=== PATIENT | female | born 1955 | race Caucasian/White ===

== ENCOUNTER 2023-02-17 08:33 | Outpatient (OUT) | payer MEDICARE, SELFPAY ==
--- NOTE | 2023-02-17 08:38 | MM_ITS ---
Patient: ALCIDES GOSS Exam Date: 02/17/2023 : 1955 Gender:F Ordering : DR. DOT WARREN D.O. Admission #: [id number] Family : CH[facility]STELLE [facility]OO [facility] Order #: [id number] CLICK HERE TO VIEW EXAM RADIOLOGY REPORT PROCEDURE: MM TOMOSYNTHESIS SCREENING BI COMPARISON: MG MAMM SCREEN 3D TERRENCE CAD, 02/02/2022. MG MAMM SCREEN 3D TERRENCE CAD, 01/31/2021. INDICATIONS: Screening for malignant neoplasm Calculator Name NCI Breast Cancer Risk Assessment Tool 5 Year Breast Cancer Risk 3.60% Lifetime Breast Cancer Risk 11.30% Personal Breast Cancer No Personal Ovarian Cancer No Treatments Excision Family Cancers Daughter with breast cancer at age 41. LOCATION: [facility] BREAST COMPOSITION: Heterogeneously dense,which may obscure small masses. FINDINGS: DIAGNOSTIC CATEGORY 1--NEGATIVE. NO CHANGE FROM COMPARISON ASSESSMENT. Scattered benign-appearing calcifications are present. Scattered benign-appearing lymph nodes are present. RIGHT BREAST: No significant suspicious finding. LEFT BREAST: No significant suspicious finding. RECOMMENDATIONS: ROUTINE MAMMOGRAM AND CLINICAL EVALUATION IN 12 MONTHS. PLEASE NOTE: A NORMAL MAMMOGRAM DOES NOT EXCLUDE THE POSSIBILITY OF BREAST CANCER. A CLINICALLY SUSPICIOUS PALPABLE LUMP SHOULD BE BIOPSIED. Dictated by: Андрей Kennedy MD on 02/19/2023 at 12:48 Approved by: Андрей Kennedy MD on 02/19/2023 at 12:49
== END 2023-02-17 08:34 | disposition home or self-care (01) ==
LOC: MAMMO 08:33
PROVIDERS: PCP Nurse Practitioner Family; Visit Provider Obstetrics & Gynecology
DX: Z12.31 Encounter for screening mammogram for malignant neoplasm of breast (principal); Z80.3 Family history of malignant neoplasm of breast
CPT/HCPCS: 77063; 77067

== ENCOUNTER 2023-09-13 07:15 | Outpatient (OUT) | payer MEDICARE, SELFPAY ==
[2023-09-13 07:50] LABS: Basophils Percent Auto 0.3 % (0.2-2.0); Eosinophils Absolute Auto 0.1 10^3/uL (0.0-0.7); Eosinophils Percent Auto 3.9 % (0.9-7.0); Hematocrit 37.4 % (36.0-48.0); Hemoglobin 12.6 g/dL (12.0-16.0); Immature Granulocytes Abs Auto 0.01 10^3/uL (0.00-0.03); Immature Granulocytes Pct Auto 0.3 % (0.0-0.5); Lymphocytes Absolute Auto 1.4 10^3/uL (1.2-3.8); Lymphocytes Percent Auto 42.9 % (20.5-60.0); Mean Corpuscular HGB Conc 33.7 g/dL (29.9-35.2); Mean Corpuscular Hemoglobin 29.9 pg (26.7-34.0); Mean Corpuscular Volume 88.6 fL (81.0-99.0); Mean Platelet Volume 9.1 fL (9.5-13.5); Monocytes Absolute Auto 0.2 10^3/uL (0.3-0.8); Monocytes Percent Auto 6.9 % (1.7-12.0); Neutrophils Absolute Auto 1.5 10^3/uL (1.4-6.5); Neutrophils Percent Auto 45.7 % (43.0-75.0); Platelet Count 208 10^3/uL (150-450); Red Blood Count 4.22 10^6/uL (4.20-5.40); Red Cell Distribution Width 11.8 % (11.0-15.0); White Blood Count 3.3 10^3/uL (4.0-11.0)
[2023-09-13 08:01] LABS: Estimated Average Glucose 100 mg/dL; Glycohemoglobin A1C 5.1 % (4.5-6.2)
[2023-09-13 08:58] LABS: Alanine Aminotransferase 31 U/L (14-59); Albumin Globulin Ratio 1.2; Albumin Level 3.7 g/dL (3.4-5.0); Alkaline Phosphatase 74 U/L (46-116); Aspartate Amino Transferase 24 U/L (15-37); BUN Creatinine Ratio 13.5; Bilirubin Total 0.7 mg/dL (0.2-1.0); Calcium 9.5 mg/dL (8.5-10.1); Carbon Dioxide 28.9 mmol/L (21.0-32.0); Chloride 104 mmol/L (98-107); Chol HDL Ratio 4.4; Cholesterol 271 mg/dL (<=200); Estimated GFR (African America >60 (>=60); Estimated GFR (Non-African Ame >60 (>=60); Free T3 2.49 pg/mL (2.18-3.98); Glucose 84 mg/dL (74-106); HDL Cholesterol 62 mg/dL (40-60); Potassium 3.9 mmol/L (3.5-5.1); Sodium 141 mmol/L (136-145); Thyroid Stimulating Hormone 5.818 uIU/mL (0.358-3.740); Total Protein 6.7 g/dL (6.4-8.2); Triglycerides 112 mg/dL (<=150); VLDL CHOLESTEROL 22.4 mg/dL
[2023-09-14 09:10] LABS: Insulin 5.1 uIU/mL (2.6-24.9)
== END 2023-09-13 07:16 | disposition home or self-care (01) ==
PROVIDERS: PCP Nurse Practitioner Family; Visit Provider Nurse Practitioner Family
DX: Z00.00 Encounter for general adult medical examination without abnormal findings (principal); R53.83 Other fatigue; R73.09 Other abnormal glucose
CPT/HCPCS: 36415; 80053; 80061; 82306; 83036; 83525; 83540; 84436; 84443; 84481; 85025

== ENCOUNTER 2023-11-13 07:14 | Outpatient (OUT) | payer MEDICARE, SELFPAY ==
--- OUTSIDE RECORDS SUMMARY | 2023-11-13 07:17 | XMS_ITS | CCD ---
Author Organization [facility] CliniSymd Care Team Providers Care Data Compiler Name Role Phone Le, Mukund K Unavailable Unavailable Le, Mukund K Unavailable Unavailable FURLONG, ANSHUL G Unavailable Unavailable Le, Mukund K Unavailable Unavailable Le, Mukund K Unavailable Unavailable FURLONG, ANSHUL Unavailable Unavailable Sonali Le Unavailable CHRISTELLE BOO Attending Unavailable CHRISTELLE BOO Admitting Unavailable CHRISTELLE BOO Primary Care Unavailable CHRISTELLE BOO Consulting Unavailable CHRISTELLE BOO Consulting Unavailable CHRISTELLE BOO Attending Unavailable CHRISTELLE BOO Admitting Unavailable CHRISTELLE BOO Primary Care Unavailable DR QUINTON ADAMS V Consulting Unavailable DOT WARREN Attending Unavailable DOT WARREN Admitting Unavailable CHRISTELLE BOO Primary Care Unavailable DR ROMEL PIKE Consulting Unavailable DOT WARREN Consulting Unavailable Medications Current Medications Medication Drug Class(es) Dates Sig (Normalized) Sig (Original) folic acid 0.4 mg oral tablet (1 source) hydroCHLOROthiazide 25 mg / lisinopril 20 mg oral tablet (1 source) Thiazide Diuretic, Angiotensin Converting Enzyme Inhibitor take 1 tablet by mouth every twenty-four hours nitrofurantoin, macrocrystals 25 mg / nitrofurantoin, monohydrate 75 mg oral capsule (1 source) Nitrofuran Antibacterial Start: 06-18-2021 take 1 capsule by mouth every twelve hours phenazopyridine hydrochloride 200 mg oral tablet (1 source) Start: 06-18-2021 take 1 tablet by mouth every eight hours thiamine 100 mg oral tablet (1 source) take 1 tablet by mouth every twenty-four hours Problems Active Problems Problem Classification Problem Date Documented Da te Episodic/Chronic Deficiency and other anemia (1 source) Anemia, unspecified; Translations: [ANEMIA UNSPECIFIED] Onset: 07-28-2022 Episodic Diabetes mellitus without complication (1 source) Other abnormal glucose; Translations: [OTHER ABNORMAL GLUCOSE] Onset: 07-28-2022 Episodic Disorders of lipid metabolism (5 sources) Hyperlipidemia, unspecified; Translations: [HYPERLIPIDEMIA UNSPECIFIED] Onset: 07-26-2022 Chronic Osteoporosis (1 source) Age-related osteoporosis without current pathological fracture; Translations: [AGE-REL OSTEOPOR W/O CURR PATH FX] Onset: 02-06-2022 Chronic Other screening for suspected conditions (not mental disorders or infectious disease) (10 sources) Encounter for screening for malignant neoplasm of rectum; Translations: [Encounter for screening mammogram for malignant neoplasm of breast] Onset: 02-02-2022 Episodic Past or Other Problems Problem Classification Problem Date Documented Da te Episodic/Chronic Genitourinary symptoms and ill-defined conditions (2 sources) Dysuria; Translations: [Dysuria] Onset: 06-18-2021 Resolved: 06-18-2021 Episodic Other non-epithelial cancer of skin (1 source) Basal cell carcinoma of face; Translations: [Basal cell carcinoma of face] Episodic Residual codes; unclassified (1 source) Asymptomatic menopausal state; Translations: [ASYMPTOMATIC MENOPAUSAL STATE] Onset: 02-06-2022 Episodic Residual codes; unclassified (1 source) Family history of malignant neoplasm of breast; Translations: [FAMILY HX MALIG NEOPLASM OF BREAST] Onset: 02-06-2022 Episodic Urinary tract infections (1 source) Acute cystitis with hematuria Onset: 06-18-2021 Resolved: 06-18-2021 Episodic Results Test Name Value Interpretation Reference Range Facility [facility] BLD IMMUNO SCREENon 07-19 OCCULT BLOOD Negative Normal NEGATIVE [facility] Comment on above: Performed By: #### LIPID, T7, TSH, CMP # ### [facility] [address] [address] [address] Maya Hartmann INSULINon 07-27-2022 Insulin 8.7 uIU/mL Normal 2.6-24.9 [facility] Comment on above: Performed By: #### INSULIN #### [facility] [address] [address] [address] Maya Hartmann CBC AUTO DIFFon 07-26-2022 BASO # 0.0 103/ul Normal 0.0-0.1 [facility] Comment on above: Performed By: #### CBC #### [facility] [address] [address] [address] Maya Hartmann Basophils/100 WBC (Bld) 0.7 % Normal 0.2-2.0 [facility] Comment on above: Performed By: #### CBC #### [facility] [address] [address] [address] Maya Hartmann EO # 0.1 103/ul Normal 0.0-0.7 [facility] Comment on above: Performed By: #### CBC #### [facility] [address] [place] [address] Dr. Maya Hartmann Eosinophils/100 WBC (Bld) 2.0 % Normal 0.9-7.0 [facility] Comment on above: Performed By: #### CBC #### [facility] [address] [place] [address] Dr. Maya Hartmann Erythrocyte distribution width (RBC) [Ratio] 11.9 % Normal 11.0-15.0 [facility] Comment on above: Performed By: #### CBC #### [facility] [address] [place] [address] Dr. Maya Hartmann Hematocrit (Bld) [Volume fraction] 39.3 % Normal 36.0-48.0 [facility] Comment on above: Performed By: #### CBC #### [facility] [address] [place] [address] Dr. Maya Hartmann Hemoglobin (Bld) [Mass/Vol] 13.5 g/dL Normal 12.0-16.0 [facility] Comment on above: Performed By: #### CBC #### [facility] [address] [place] [address] Dr. Maya Hartmann IG # 0.00 10e3/ul Normal 0.00-0.03 [facility] Comment on above: Performed By: #### CBC #### [facility] [address] [place] [address] Dr. Maya Hartmann IG % 0.0 % Normal 0.0-0.5 [facility] Comment on above: Performed By: #### CBC #### [facility] [address] [place] [address] Dr. Maya Hartmann LYMPH # 1.3 103/ul Normal 1.2-3.8 [facility] Comment on above: Performed By: #### CBC #### [facility] [address] [place] [address] Dr. Maya Hartmann Lymphocytes/100 WBC (Bld) 41.3 % Normal 20.5-60.0 [facility] Comment on above: Performed By: #### CBC #### [facility] [address] [place] [address] Dr. Maya Hartmann MANUAL DIFF REQ NO Normal [facility] Comment on above: Performed By: #### CBC #### [facility] [address] [place] [address] Dr. Maya Hartmann MCH (RBC) [Entitic mass] 29.9 pg Normal 26.7-34.0 [facility] Comment on above: Performed By: #### CBC #### [facility] [address] [place] [address] Dr. Maya Hartmann MCHC (RBC) [Mass/Vol] 34.4 g/dL Normal 29.9-35.2 [facility] Comment on above: Performed By: #### CBC #### [facility] [address] [place] [address] Dr. Maya Hartmann MCV (RBC) [Entitic vol] 86.9 fL Normal 81.0-99.0 [facility] Comment on above: Performed By: #### CBC #### [facility] [address] [place] [address] Dr. Maya Hartmann MONO # 0.2 103/ul Critically low 0.3-0.8 [facility] Comment on above: Performed By: #### CBC #### [facility] [address] [place] [address] Dr. Maya Hartmann Monocytes/100 WBC (Bld) 6.9 % Normal 1.7-12.0 [facility] Comment on above: Performed By: #### CBC #### [facility] [address] [place] [address] Dr. Maya Hartmann NEUT # 1.5 103/ul Normal 1.4-6.5 [facility] Comment on above: Performed By: #### CBC #### [facility] [address] [place] [address] Dr. Maya Hartmann Neutrophils/100 WBC (Bld) 49.1 % Normal 43.0-75.0 [facility] Comment on above: Performed By: #### CBC #### [facility] [address] [address] [address] Maya Hartmann Platelet mean volume (Bld) [Entitic vol] 8.6 fL Critically low 9.5-13.5 [facility] Comment on above: Performed By: #### CBC #### [facility] [address] [place] [address] Dr. Maya Hartmann PLT 212 103/ul Normal 150-450 [facility] Comment on above: Performed By: #### CBC #### [facility] [address] [place] [address] Dr. Maya Hartmann RBC 4.52 106/ul Normal 4.20-5.40 [facility] Comment on above: Performed By: #### CBC #### [facility] [address] [place] [address] Dr. Maya Hartmann WBC 3.1 103/ul Critically low 4.0-11.0 [facility] Comment on above: Performed By: #### CBC #### [facility] [address] [place] [address] Dr. Maya Hartmann FREE THYROXINE INDEX T7on FTI 2.17 Normal 1.30-4.50 [facility] Comment on above: Performed By: #### LIPID, T7, TSH, CMP # ### [facility] [address] [place] [address] Dr. Maya Hartmann T3U 35.0 % Normal 30.0-39.0 [facility] Comment on above: Performed By: #### LIPID, T7, TSH, CMP # ### [facility] [address] [address] [address] Maya Hartmann T4 [Mass/Vol] 6.20 ug/dL Normal 4.80-13.90 [facility] Comment on above: Performed By: #### LIPID, T7, TSH, CMP # ### [facility] [address] [place] [address] Dr. Maya Hartmann GLYCOHEMOGLOBIN A1Con 2022 ADA RECOMMENDATION SEE BELOW Normal [facility] Comment on above: Result Comment: ADA RECOMMENDED LIMIT 4. 0 - 6.0 ADA THERAPEUTIC TARGET < 7.0 ACTION SUGGESTED > 7.0 Performed By: #### A 1C #### [facility] [address] [place] [address] Dr. Maya Hartmann Glucose [Mass/Vol] 94 mg/dL Normal [facility] Comment on above: Performed By: #### A1C #### [facility] [address] [place] [address] Dr. Maya Hartmann HbA1c (Bld) [Mass fraction] 4.9 % Normal 4.5-6.2 [facility] Comment on above: Performed By: #### A1C #### [facility] [address] [place] [address] Dr. Maya Hartmann IRONon 07-26-2022 Iron [Mass/Vol] 81.0 ug/dL Normal 50.0-170.0 [facility] Comment on above: Performed By: #### IRON #### [facility] [address] [place] [address] Dr. Maya Hartmann LIPID PROFILEon 07-26-2022 CHOL-HDL RATIO NORM SEE BELOW Normal [facility] Comment on above: Result Comment: 3.3 - 4.4 LOW RISK 4.4 - 7.1 AVERAGE RISK 7.1 - 11.0 MODERATE RISK >11.0 HIGH RISK Performed By: #### L IPID, T7, TSH, CMP #### [facility] [address] [place] [address] Dr. Maya Hartmann Cholesterol [Mass/Vol] 254 mg/dL Critically high <=200 [facility] Comment on above: Performed By: #### LIPID, T7, TSH, CMP # ### [facility] [address] [place] [address] Dr. Maya Hartmann Cholesterol in HDL [Mass/Vol] 51 mg/dL Normal 40-60 [facility] Comment on above: Performed By: #### LIPID, T7, TSH, CMP # ### [facility] [address] [address] [address] Maya Hartmann Cholesterol in LDL [Mass/Vol] 170.4 mg/dL Normal [facility] Comment on above: Performed By: #### LIPID, T7, TSH, CMP # ### [facility] [address] [address] [address] Maya Hartmann Cholesterol.tota l/Cholesterol in HDL [Mass ratio] 5.0 {ratio} Normal [facility] Comment on above: Performed By: #### LIPID, T7, TSH, CMP # ### [facility] [address] [address] [address] Maya Hartmann HDL NORMAL > or = 60 mg/dl - LO W CARDIOVASCULAR RISK <40 mg/dl - HIGH CARDIOVASCULAR RISK Normal [facility] Comment on above: Performed By: #### LIPID, T7, TSH, CMP # ### [facility] [address] [address] [address] Maya Hartmann LDL CALC NORMAL SEE BELOW Normal [facility] Comment on above: Result Comment: <100 mg/dl OPTIMAL 100 - 129 mg/dl NEAR OR ABOVE OPTIMAL 130 - 159 mg/dl BORDERLINE HIGH 160 - 189 mg/dl HIGH >190 mg/dl VERY HIGH Performed By: #### L IPID, T7, TSH, CMP #### [facility] [address] [address] [address] Maya Hartmann Triglyceride [Mass/Vol] 163 mg/dL Critically high <=150 [facility] Comment on above: Performed By: #### LIPID, T7, TSH, CMP # ### [facility] [address] [address] [address] Maya Hartmann VLDL CALC 32.6 mg/dL Normal [facility] Comment on above: Performed By: #### LIPID, T7, TSH, CMP # ### [facility] [address] [address] [address] Maya Hartmann PROF 14(COMP METB)on 023 Albumin [Mass/Vol] 4.1 g/dL Normal 3.4-5.0 [facility] Comment on above: Performed By: #### LIPID, T7, TSH, CMP # ### [facility] [address] [place] [address] Dr. Maya Hartmann Albumin/Globulin [Mass ratio] 1.4 {ratio} Normal [facility] Comment on above: Performed By: #### LIPID, T7, TSH, CMP # ### [facility] [address] [place] [address] Dr. Maya Hartmann ALP [Catalytic activity/Vol] 82 U/L Normal 46-116 [facility] Comment on above: Performed By: #### LIPID, T7, TSH, CMP # ### [facility] [address] [place] [address] Dr. Maya Hartmann ALT [Catalytic activity/Vol] 28 U/L Normal 14-59 [facility] Comment on above: Performed By: #### LIPID, T7, TSH, CMP # ### [facility] [address] [place] [address] Dr. Maya Hartmann Anion gap [Moles/Vol] 8.3 mmol/L Normal [facility] Comment on above: Performed By: #### LIPID, T7, TSH, CMP # ### [facility] [address] [place] [address] Dr. Maya Hartmann AST [Catalytic activity/Vol] 24 U/L Normal 15-37 [facility] Comment on above: Performed By: #### LIPID, T7, TSH, CMP # ### [facility] [address] [place] [address] Dr. Maya Hartmann Bilirubin [Mass/Vol] 0.5 mg/dL Normal 0.2-1.0 [facility] Comment on above: Performed By: #### LIPID, T7, TSH, CMP # ### [facility] [address] [place] [address] Dr. Maya Hartmann Calcium [Mass/Vol] 9.4 mg/dL Normal 8.5-10.1 [facility] Comment on above: Performed By: #### LIPID, T7, TSH, CMP # ### [facility] [address] [place] [address] Dr. Maya Hartmann Chloride [Moles/Vol] 104 mmol/L Normal 98-107 [facility] Comment on above: Performed By: #### LIPID, T7, TSH, CMP # ### [facility] [address] [address] [address] Maya Hartmann CO2 [Moles/Vol] 30.8 mmol/L Normal 21.0-32.0 [facility] Comment on above: Performed By: #### LIPID, T7, TSH, CMP # ### [facility] [address] [address] [address] Maya Hartmann Creatinine [Mass/Vol] 0.86 mg/dL Normal 0.55-1.02 [facility] Comment on above: Performed By: #### LIPID, T7, TSH, CMP # ### [facility] [address] [address] [address] Maya Hartmann EGFR-AF KAZAKH >60 Normal >=60 [facility] Comment on above: Performed By: #### LIPID, T7, TSH, CMP # ### [facility] [address] [address] [address] Maya Hartmann EGFR-NON AF KAZAKH >60 Normal >=60 [facility] Comment on above: Performed By: #### LIPID, T7, TSH, CMP # ### [facility] [address] [address] [address] Maya Hartmann Globulin (S) [Mass/Vol] 2.9 g/dL Normal [facility] Comment on above: Performed By: #### LIPID, T7, TSH, CMP # ### [facility] [address] [address] [address] Maya Hartmann Glucose [Mass/Vol] 93 mg/dL Normal 74-106 [facility] Comment on above: Performed By: #### LIPID, T7, TSH, CMP # ### [facility] [address] [address] [address] Maya Hartmann Potassium [Moles/Vol] 4.1 mmol/L Normal 3.5-5.1 [facility] Comment on above: Performed By: #### LIPID, T7, TSH, CMP # ### [facility] [address] [address] [address] Maya Hartmann Protein [Mass/Vol] 7.0 g/dL Normal 6.4-8.2 [facility] Comment on above: Performed By: #### LIPID, T7, TSH, CMP # ### [facility] [address] [address] [address] Maya Hartmann Sodium [Moles/Vol] 139 mmol/L Normal 136-145 [facility] Comment on above: Performed By: #### LIPID, T7, TSH, CMP # ### [facility] [address] [address] [address] Maya Hartmann Urea nitrogen [Mass/Vol] 11.0 mg/dL Normal 7.0-18.0 [facility] Comment on above: Performed By: #### LIPID, T7, TSH, CMP # ### [facility] [address] [address] [address] Maya Hartmann Urea nitrogen/Creatin ine [Mass ratio] 12.8 mg/mg Normal [facility] Comment on above: Performed By: #### LIPID, T7, TSH, CMP # ### [facility] [address] [address] [address] Maya Hartmann TSHon 07-26-2022 TSH 5.728 uIU/mL Critically high 0.358-3.74 0 [facility] Comment on above: Performed By: #### LIPID, T7, TSH, CMP # ### [facility] [address] [address] [address] Maya Hartmann MG MAMM SCREEN 3D TERRENCE CADon 02-02-2022 MG MAMM SCREEN 3D TERRENCE CAD Patient: ALCIDES GOSS Exam Date: 02/02/2022 : 1955 Gender:F Ordering : DR. DOT WARREN D.O. Admission #: [id number] Family : Order #: [id number] CLICK HERE TO VIEW EXAM RADIOLOGY REPORT PROCEDURE: MAMMOGRAM SCREENING 3D BILATERAL CAD COMPARISON: MG MAMM SCREEN TERRENCE W CAD, 01/29/2020. MG MAMM SCREEN 3D TERRECNE CAD, 01/31/2021. INDICATIONS: Screening mammography Calculator Name NCI Breast Cancer Risk Assessment Tool 5 Year Breast Cancer Risk 3.50% Lifetime Breast Cancer Risk 11.80% Personal Breast Cancer No Personal Ovarian Cancer No Treatments Excision Family Cancers Daughter with breast cancer at age 41. LOCATION: [facility] BREAST COMPOSITION: Heterogeneously dense,which may obscure small masses. FINDINGS: DIAGNOSTIC CATEGORY 1--NEGATIVE. NO CHANGE FROM COMPARISON ASSESSMENT. Scattered benign-appearing calcifications are present. Scattered benign-appearing lymph nodes are present. RIGHT BREAST: No significant suspicious finding. LEFT BREAST: No significant suspicious finding. RECOMMENDATIONS: ROUTINE MAMMOGRAM AND CLINICAL EVALUATION IN 12 MONTHS. PLEASE NOTE: A NORMAL MAMMOGRAM DOES NOT EXCLUDE THE POSSIBILITY OF BREAST CANCER. A CLINICALLY SUSPICIOUS PALPABLE LUMP SHOULD BE BIOPSIED. Dictated by: Quinton Adams MD on 02/02/2022 at 15:20 Approved by: Quinton Adams MD on 02/02/2022 at 15:21 Normal [facility] XR DEXA BONE DENSITYon 02-02 XR DEXA BONE DENSITY EXAMINATION: XR DEXA BONE DENSITY, 02/02/2022 12:58 PM EDT HISTORY: Screening for osteoporosis COMPARISON: DEXA bone densitometry 01/29/2020 TECHNIQUE: Dual-energy X-ray absorptiometry (DEXA) bone density study performed for the axial skeleton. FINDINGS: SPINE ANALYSIS: Average bone mineral density is 1.016 g/cm2. T-score (standard deviation relative to young adult mean): -1.4 . +3.4% change since prior study. HIP ANALYSIS: Lowest bone mineral density is within the left femoral neck, 0.674 g/cm2. T-score (standard deviation relative to young adult mean): -2.6 . +3.0% change since prior study. IMPRESSION: [employer] Classification: Osteoporosis - High Fracture Risk Electronically authenticated by: ROMEL PIKE Date: 2022-02-02 14:13 Normal [facility] Urinalysis - AUTOMATEDon Appearance (U) clear [employer] Other Bilirubin Ql (U) Negative [email or web address] Other Color (U) orange [employer] Other Glucose Ql (U) 100 [employer] Other Hemoglobin Ql (U) [employer] Other Ketones Ql (U) Negative [employer] Other Leukocyte esterase Test strip Ql (U) [employer] Other Nitrite Ql (U) Positive [employer] Other pH (U) 6.5 [pH] [employer] Other Protein Ql (U) 30 [employer] Other Specific gravity (U) [Rel density] 1.020 [employer] Other Urobilinogen (U) [Mass/Vol] 1.0 mg/dL [employer] Other Urine Cultureon 06-18-2021 Bacteria identified Cx Nom (U) Reason for Exam Dysuria Urine 30,000 colonies/ml mixed bacterial skin contaminants 2 Days PERFORMED BY: [place] [address] PATHOLOGIST CHARTERED FINANCIAL ANALYST TJ ALEJANDRA M.D. [facility] Comment on above: Performed By: #### CUU #### [address] CULTURE, URINE, ROUTINEon CULTURE, URINE, ROUTINE SEE NOTE Normal [facility] Comment on above: Result Comment: CULTURE, URINE, ROUTINE Micro Number: [id number] Test Status: Final Specimen Source: 395 Specimen Quality: Adequate Result: Mixed non-uropathogenic Gram positive leesa. May represent colonizers from external and internal genitalia. No further testing (including susceptibility) will be performed. Performed By: #### 3 95 #### [facility]-[address], [address] [place] [id number] Improvement Nurse: Gabriel Tsai MD Coding Summaryon 03-20-2017 Coding Summary CODING DATE: 017 [facility] STATUS: Home PAYOR: Commercial Insurance APC DESCRIPTION 5022 Level 2 Type A ED Visits ADMIT DX: REASON FOR VISIT DX: S01.01XA Laceration without foreign body of scalp, initial encounter FINAL DX: PRINCIPAL: S01.01XA Laceration without foreign body of scalp, initial encounter SECONDARY: W01.198A Fall on same level from slipping, tripping and stumbling with subsequent striking against other object, initial encounter Y93.01 Activity, walking, marching and hiking Y92.[address] of occurrence of the external cause PYMT PROC APC STAT DESCRIPTION DOCTOR NAME DATE NOTE: The code number assigned matches the documented diagnosis and / or procedure in the patient's chart. However, the narrative phrase printed from the coding software may appear abbreviated, or result in slightly different terminology. Revised Coded By: Lydia Locke Revised Date Saved: 12/06/2016 03:06 pm [facility] Coding Summary CODING DATE: 017 [facility] STATUS: Home PAYOR: Commercial Insurance APC DESCRIPTION 5022 Level 2 Type A ED Visits 5692 Level 2 Drug Administration ADMIT DX: REASON FOR VISIT DX: S01.01XA Laceration without foreign body of scalp, initial encounter FINAL DX: PRINCIPAL: S01.01XA Laceration without foreign body of scalp, initial encounter SECONDARY: W01.198A Fall on same level from slipping, tripping and stumbling with subsequent striking against other object, initial encounter Y93.01 Activity, walking, marching and hiking Y92.[address] of occurrence of the external cause PYMT PROC APC STAT DESCRIPTION DOCTOR NAME DATE NOTE: The code number assigned matches the documented diagnosis and / or procedure in the patient's chart. However, the narrative phrase printed from the coding software may appear abbreviated, or result in slightly different terminology. Revised Coded By: Lydia Locke Revised Date Saved: 12/06/2016 03:04 pm [facility] Coding Summaryon 12-06-2016 Coding Summary CODING DATE: 017 [facility] STATUS: Home PAYOR: Commercial Insurance ADMIT DX: REASON FOR VISIT DX: S01.01XA Laceration without foreign body of scalp, initial encounter FINAL DX: PRINCIPAL: S01.01XA Laceration without foreign body of scalp, initial encounter SECONDARY: W01.198A Fall on same level from slipping, tripping and stumbling with subsequent striking against other object, initial encounter Y93.01 Activity, walking, marching and hiking Y92.[address] of occurrence of the external cause PROCEDURES DOCTOR NAME DATE NOTE: The code number assigned matches the documented diagnosis and / or procedure in the patient's chart. However, the narrative phrase printed from the coding software may appear abbreviated, or result in slightly different terminology. Revised Coded By: Lydia Locke Revised Date Saved: 12/06/2016 03:06 pm [facility] Coding Summary CODING DATE: 017 [facility] STATUS: Home PAYOR: Commercial Insurance ADMIT DX: REASON FOR VISIT DX: S01.01XA Laceration without foreign body of scalp, initial encounter FINAL DX: PRINCIPAL: S01.01XA Laceration without foreign body of scalp, initial encounter SECONDARY: W01.198A Fall on same level from slipping, tripping and stumbling with subsequent striking against other object, initial encounter Y93.01 Activity, walking, marching and hiking Y92.[address] of occurrence of the external cause PROCEDURES DOCTOR NAME DATE NOTE: The code number assigned matches the documented diagnosis and / or procedure in the patient's chart. However, the narrative phrase printed from the coding software may appear abbreviated, or result in slightly different terminology. Coded By: Lydia Locke Date Saved: 12/06/2016 03:04 pm [facility] ED Note - Otheron 11-30-2016 Thyroid stimulating hormone (TSH) 1st call back attempt- pt states that she is doing wonderful, she has a follow up appointment on 12/05/16, and she does not have any questions regarding her discharge instructions[Electronically Signed on: 11/30/2016 11:18 EDT] Chris Mitchell[Verified on: 11/30/2016 11:18 EDT] Chris Mitchell [facility] ED Clinical Summaryon 2016 ED Clinical Summary [facility] [address] [place] [address] ed Clinical SummaryPERSON INFORMATIONName: ALCIDES GOSS Age: 61 Years Sex: FEMALEDOB: [birth year] MRN: Acct#:Visit Reason: Scalp laceration; FALL - HEAD LACERATION Arrival:11/26/16 19:55:00 Discharge: 11/26/16 21:33:00LOS: 000 01:38 Check In: 11/26/16 19:55:00 Checkout:11/26/16 21:33:00Address:[address] [facility] [address]QZQ: ANSHUL CHATMANPROVICARIN INFORMATIONProvider Role Assigned UnassignedTAON BUCK ED PA 11/26/16 20:16:59 11/26/16 20:31:06Jessica Larson RN ED Nurse 11/26/16 20:17:49Mukund Gaitan MD ED Provider 11/26/16 20:20:21VITALS INFORMATIONVital Sign Triage LatestTemperature TympanicTemperature Temporal ArteryPulse Rate 76 bpm 76 bpmO2 Sat 99 % 99 %Respiratory Rate 16 br/min 16 br/minBlood Pressure 136 mmHg/75 mmHg 136 mmHg/75 mmHgMEDICAL INFORMATIONMedications Given:Medication Dose RouteTdap 0.5 mL IMbacitracin topical 500 unit(s) TOPAllergy Information:No known allergiesPHYSICIAN DOCUMENTATIONPatient: ALCIDES GOSS : 61 years Sex: FEMALE : 53Associated Diagnoses: NoneAuthor: Mukund Gaitan MDProcedureLaceration repairTime: 11/26/16 20:40:00 .Confirmed: Patient, procedure, side, and site correct, Time-out taken prior to procedure.Consent: Patient, Has given verbal consent.Description/ repairLaceration 4 cm in length.Scalp: left, temporal, parietal.Shape: irregular, flap.Depth: subcutaneous, multi-layer.Details: surrounding tissue contused, swelling, bleeding.Anesthesia: 10 ml, 1% lidocaine.Preparation: sterile field established.Irrigation: moderate, with saline.Debridement: moderate.Skin closure: with 3 -0 Nylon, simple technique, # 6 lenore.Post procedure exam: Circulation, motor, sensory examination intact.Complications: None.Patient tolerated: Well.Performed by: Self.Total time: 30 minutes.DISCHARGE INFORMATION:Discharge Disposition: HomeDischarge Location: HomePATIENT EDUCATION INFORMATIONInstructions: Head Injury, Adult; Laceration Care, Adult, Berh-bz-LrziSmrqel-Up:With: Address: When:Follow up with primary care provider Within 7 to 10 daysComments:Wash the skin area of the wound and around the wound once a day with soap and water. Pat it dry. Apply bacitracin antibiotic ointment to the wound 2 or 3 times a day.Keep area clean and dry.Followup with your doctor or PCP as instructed within 8-10 days for reevaluation.Return to ER if there is any worse problems such as increased swelling redness, significant pain, headache or weakness.DIAGNOSIS:Laceration of scalpComment: [facility] ED Note - Physicianon 2016 ED Note - Physician Patient: ALCIDES GOSS : 61 years Sex: FEMALE : 53Associated Diagnoses: NoneAuthor: Mukund Gaitan MDProcedureLaceration repairTime: 11/26/16 20:40:00 .Confirmed: Patient, procedure, side, and site correct, Time-out taken prior to procedure.Consent: Patient, Has given verbal consent.Description/ repairLaceration 4 cm in length.Scalp: left, temporal, parietal.Shape: irregular, flap.Depth: subcutaneous, multi-layer.Details: surrounding tissue contused, swelling, bleeding.Anesthesia: 10 ml, 1% lidocaine.Preparation: sterile field established.Irrigation: moderate, with saline.Debridement: moderate.Skin closure: with 3 -0 Nylon, simple technique, # 6 lenore.Post procedure exam: Circulation, motor, sensory examination intact.Complications: None.Patient tolerated: Well.Performed by: Self.Total time: 30 minutes.[Electronically Signed on: 11/26/2016 21:05 EDT] Mukund Gaitan MD[Verified on: 11/26/2016 21:05 EDT] Mukund Gaitan MD [facility] ED Note - Physician Patient: ALCIDES GOSS : 61 years Sex: FEMALE : 53Associated Diagnoses: Laceration of scalpAuthor: Mukund Gaitan MDBasic InformationTime seen: Date & time 11/26/16 20:20:00.History source: Patient.Arrival mode: Private vehicle, walking.History limitation: None.Additional information: Chief Complaint from Nursing Triage Note : Chief Yqtpxkwqn04/09/17 20:00 EDT Chief Complaint FELL HITTING HEAD ON ROCKS CAUSING APPROX. 2 IN SCALP LACERATION LEFT SIDE. DENIES ANY LOC. 2-200MG IBUPROFEN ENROUTE TO ED. .History of Present IllnessThe patient presents with head injury. The onset was just prior to arrival. Type of injury: fall. The character of symptoms is pain and bleeding. Loss of consciousness none. Location: Left temporal parietal.61-year-old female presented to ER for evaluation of scalp laceration at result of head injury. Patient stated that she was with her grandchildren. [place]. She stated that she tripped over a stump. She stated that she fell onto her side. She reported having had striking against the edge of rock. She noted quite a bit of bleeding. She denied loss of consciousness. She denies neck pain. She denies any other injury. She stated that there was moderate bleeding at the scene. She reported taking some ibuprofen because scalp region pain. She denies headache. No vomiting. No weakness.Does not take aspirin.Review of SystemsConstitutional symptoms: Negative except as documented in HPI.Skin symptoms: Negative except as documented in HPI.Eye symptoms: Vision unchanged.Respiratory symptoms: No shortness of breath,Cardiovascular symptoms: No chest pain,Gastrointestinal symptoms: No abdominal pain, no vomiting.Musculoskeletal symptoms: No back pain, no Muscle pain, no Joint pain.Neurologic symptoms: No dizziness, no altered level of consciousness.Hematologic/Lymph atic symptoms: Bleeding tendency negative,Health StatusAllergies:Allergic Reactions (Selected)No known allergies.Past Medical/ Family/ Social HistoryMedical history:No active or resolved past medical history items have been selected or recorded., Reviewed as documented in chart.Surgical history:No active procedure history items have been selected or recorded., Reviewed as documented in chart.Family history:No family history items have been selected or recorded., Reviewed as documented in chart.Social history:Social & Psychosocial HabitsNo Data Available, Reviewed as documented in chart, . No tobacco use. No signif ETOH use.Problem list:Active Problems (1)Hypercholesteremia, per nurse's notes.Physical Examination Vital SignsVital Signs11/26/16 20:00 EDT Temperature Oral 36.2 DegC Peripheral Pulse Rate 76 bpm Respiratory Rate 16 br/min Systolic Blood Pressure 136 mmHg Diastolic Blood Pressure 75 mmHg SpO2 99 %.Fvwoyryiuyud33/09/17 20:22 EDT Height/Length Dosing 168.000 cm Weight Dosing 68.000 kg11/26/16 20:00 EDT Height/Length Estimated 168.000 cm Weight Estimated 68.000 kg.General: Alert, no acute distress.Suzanne coma scale: Total score: Total score: 15.Neurological: Alert and oriented to person, place, time, and situation, No focal neurological deficit observed, Neurologic examination is grossly unremarkable. The patient is awake, alert, appropriate. The patient is oriented to person place and time and situation. Speech is normal and spontaneous. Memory and recall is normal. Movement observed to be spontaneous without deficit or weakness or without impaired coordination. Patient ambulate with a normal steady gait. No obvious focal weakness or deficit noted.Skin: Warm, dry, intact, normal for ethnicity.Head: Normocephalic, .Neck: Supple, trachea midline, no tenderness, C-spine cleared via Nexus criteria.Eye: Pupils are equal, round and reactive to light, extraocular movements are intact, normal conjunctiva, vision unchanged.Ears, nose, mouth and throat: Tympanic membranes clear, oral mucosa moist, no pharyngeal erythema or exudate, No hemotympanum.Cardiovascular: Regular rate and rhythm, No murmur.Respiratory: Lungs are clear to auscultation, respirations are non-labored.Back: Nontender, Normal range of motion.Musculoskeletal: Normal ROM, no tenderness, no swelling, no deformity.Psychiatric: Cooperative, appropriate mood & affect, normal judgment.Medical Decision MakingDifferential Diagnosis: Head injury, laceration not neck injury, not post concussive syndrome, not cervical fracture.Orders Launch OrdersPatient Care:Wound Care Routine (Order): 11/26/16 20:29 EDT, Constant orderPharmacy:bacitracin topical (Order): 1 won, TOP, Oncetetanus/diphth/pertuss (Tdap) adult/adol (Order): 0.5 mL, IM, Once.Reexamination/ ReevaluationI have discussed with patient regarding findings on exam. Patient appears to have head injury with isolated laceration of the scalp. The force of the fall did not appears to have significant signs of skull laceration or intracranial hemorrhage.Based on clinical exam, no imaging necessary.I have discussed this with patient and ; they indicate understanding and agreed; wound closure performed with the scalp.Treatment plan discussed regarding wound closure.They understoodImpression and PlanDiagnosisLaceration of scalp ([id number] S01.01XA, Discharge, Medical)PlanCondition: Improved, Stable.Disposition: Discharged: Time 11/26/16 21:05:00, to home.Patient was given the following educational materials: Laceration Care, Adult, Ghcc-xw-Lpce, Head Injury, Adult, Head Injury, Adult, Laceration Care, Adult, Gctf-wx-Bspd.Follow up with: Follow up with primary care provider Within 7 to 10 days Wash the skin area of the wound and around the wound once a day with soap and water. Pat it dry. Apply bacitracin antibiotic ointment to the wound 2 or 3 times a day.Keep area clean and dry.Followup with your doctor or PCP as instructed within 8-10 days for reevaluation.Return to ER if there is any worse problems such as increased swelling redness, significant pain, headache or weakness..Counseled: Patient, Family, Regarding diagnosis, Regarding treatment plan, Patient indicated understanding of instructions.[Electronically Signed on: 11/26/2016 22:40 EDT] Mukund Gaitan MD[Verified on: 11/26/2016 22:40 EDT] Mukund Gaitan MD [facility] Comment on above: Order Comment: Missing Attachment [id number] Can be viewed in source system ED Note-Nursingon 11-26-2016 ED Note-Nursing WOUND REPAIRED BY DR Donald GAITAN. 6 LENORE AND 2 SUTURES NOTED. DC ORDERS RECEIV AND DISCUSSED WITH PT. SHE VERBALIZED UNDERSTANDING. PT HOME WITH STEADY GAIT NOTED UPON EXITING ED. [facility] ED Patient Education Noteon 11-26-2016 ED Patient Education Note Education CnulgdqreCtdh-xa-LutfAouatlujuu Care, AdultA laceration is a cut that goes through all layers of the skin. The cut also goes into the tissue that is right under the skin. Some cuts heal on their own. Others need to be closed with stitches (sutures), lenore, skin adhesive strips, or wound glue. Taking care of your cut lowers your risk of infection and helps your cut to heal better. HOW TO TAKE CARE OF YOUR CUTFor stitches or lenore:? Keep the wound clean and dry.? If you were given a bandage (dressing), you should change it at least one time per day or as told by your doctor. You should also change it if it gets wet or dirty.? Keep the wound completely dry for the first 24 hours or as told by your doctor. After that time, you may take a shower or a bath. However, make sure that the wound is not soaked in water until after the stitches or lenore have been removed.? Clean the wound one time each day or as told by your doctor:? Wash the wound with soap and water.? Rinse the wound with water until all of the soap comes off.? Pat the wound dry with a clean towel. Do not rub the wound.? After you clean the wound, put a thin layer of antibiotic ointment on it as told by your doctor. This ointment:? Helps to prevent infection.? Keeps the bandage from sticking to the wound.? Have your stitches or lenore removed as told by your doctor.If your doctor used skin adhesive strips:? Keep the wound clean and dry.? If you were given a bandage, you should change it at least one time per day or as told by your doctor. You should also change it if it gets dirty or wet.? Do not get the skin adhesive strips wet. You can take a shower or a bath, but be careful to keep the wound dry.? If the wound gets wet, pat it dry with a clean towel. Do not rub the wound.? Skin adhesive strips fall off on their own. You can trim the strips as the wound heals. Do not remove any strips that are still stuck to the wound. They will fall off after a while.If your doctor used wound glue:? Try to keep your wound dry, but you may briefly wet it in the shower or bath. Do not soak the wound in water, such as by swimming.? After you take a shower or a bath, gently pat the wound dry with a clean towel. Do not rub the wound.? Do not do any activities that will make you really sweaty until the skin glue has fallen off on its own.? Do not apply liquid, cream, or ointment medicine to your wound while the skin glue is still on.? If you were given a bandage, you should change it at least one time per day or as told by your doctor. You should also change it if it gets dirty or wet.? If a bandage is placed over the wound, do not let the tape for the bandage touch the skin glue.? Do not pick at the glue. The skin glue usually stays on for 5?10 days. Then, it falls off of the skin.General Instructions?? To help prevent scarring, make sure to cover your wound with sunscreen whenever you are outside after stitches are removed, after adhesive strips are removed, or when wound glue stays in place and the wound is healed. Make sure to wear a sunscreen of at least 30 SPF.? Take krab-zmr-nekkwfc and prescription medicines only as told by your doctor.? If you were given antibiotic medicine or ointment, take or apply it as told by your doctor. Do not stop using the antibiotic even if your wound is getting better.? Do not scratch or pick at the wound.? Keep all follow-up visits as told by your doctor. This is important.? Check your wound every day for signs of infection. Watch for:? Redness, swelling, or pain.? Fluid, blood, or pus.? Raise (elevate) the injured area above the level of your heart while you are sitting or lying down, if possible.GET HELP IF:? You got a tetanus shot and you have any of these problems at the injection site:? Swelling.? Very bad pain.? Redness.? Bleeding.? You have a fever.? A wound that was closed breaks open.? You notice a bad smell coming from your wound or your bandage.? You notice something coming out of the wound, such as wood or glass.? Medicine does not help your pain.? You have more redness, swelling, or pain at the site of your wound.? You have fluid, blood, or pus coming from your wound.? You notice a change in the color of your skin near your wound.? You need to change the bandage often because fluid, blood, or pus is coming from the wound.? You start to have a new rash.? You start to have numbness around the wound.GET HELP RIGHT AWAY IF:? You have very bad swelling around the wound.? Your pain suddenly gets worse and is very bad.? You notice painful lumps near the wound or on skin that is anywhere on your body.? You have a red streak going away from your wound.? The wound is on your hand or foot and you cannot move a finger or toe like you usually can.? The wound is on your hand or foot and you notice that your fingers or toes look pale or bluish.This information is not intended to replace advice given to you by your health care provider. Make sure you discuss any questions you have with your health care provider.Document Released: 10/23/2008 Document Revised: 09/21/2015 Document Reviewed: 05/03/2015[employer] Patient Education ?2016 [place].Home Health CareHead Injury, AdultYou have received a head injury. It does not appear serious at this time. Headaches and vomiting are common following head injury. It should be easy to awaken from sleeping. Sometimes it is necessary for you to stay in the emergency department for a while for observation. Sometimes admission to the hospital may be needed. After injuries such as yours, most problems occur within the first 24 hours, but side effects may occur up to 7?10 days after the injury. It is important for you to carefully monitor your condition and contact your health care provider or seek immediate medical care if there is a change in your condition. WHAT ARE THE TYPES OF HEAD INJURIES?Head injuries can be as minor as a bump. Some head injuries can be more severe. More severe head injuries include:? A jarring injury to the brain (concussion).? A bruise of the brain (contusion). This mean there is bleeding in the brain that can cause swelling.? A cracked skull (skull fracture).? Bleeding in the brain that collects, clots, and forms a bump (hematoma).WHAT CAUSES A HEAD INJURY?A serious head injury is most likely to happen to someone who is in a car wreck and is not wearing a seat belt. Other causes of major head injuries include bicycle or motorcycle accidents, sports injuries, and falls.HOW ARE HEAD INJURIES DIAGNOSED?A complete history of the event leading to the injury and your current symptoms will be helpful in diagnosing head injuries. Many times, pictures of the brain, such as CT or MRI are needed to see the extent of the injury. Often, an overnight hospital stay is necessary for observation.WHEN SHOULD I SEEK IMMEDIATE MEDICAL CARE?You should get help right away if:? You have confusion or drowsiness.? You feel sick to your stomach (nauseous) or have continued, forceful vomiting.? You have dizziness or unsteadiness that is getting worse.? You have severe, continued headaches not relieved by medicine. Only take ogfz-hjs-zpprrqk or prescription medicines for pain, fever, or discomfort as directed by your health care provider.? You do not have normal function of the arms or legs or are unable to walk.? You notice changes in the black spots in the center of the colored part of your eye (pupil).? You have a clear or bloody fluid coming from your nose or ears.? You have a loss of vision.During the next 24 hours after the injury, you must stay with someone who can watch you for the warning signs. This person should contact local emergency services (1 in the [place] if you have seizures, you become unconscious, or you are unable to wake up.HOW CAN I PREVENT A HEAD INJURY IN THE FUTURE?The most important factor for preventing major head injuries is avoiding motor vehicle accidents. ?To minimize the potential for damage to your head, it is crucial to wear seat belts while riding in motor vehicles. Wearing helmets while bike riding and playing collision sports (like football) is also helpful. Also, avoiding dangerous activities around the house will further help reduce your risk of head injury.WHEN CAN I RETURN TO NORMAL ACTIVITIES AND ATHLETICS?You should be reevaluated by your health care provider before returning to these activities. If you have any of the following symptoms, you should not return to activities or contact sports until 1 week after the symptoms have stopped:? Persistent headache.? Dizziness or vertigo.? Poor attention and concentration.? Confusion.? Memory problems.? Nausea or vomiting.? Fatigue or tire easily.? Irritability.? Intolerant of bright lights or loud noises.? Anxiety or depression.? Disturbed sleep.MAKE SURE YOU:? Understand these instructions.? Will watch your condition.? Will get help right away if you are not doing well or get worse.This information is not intended to replace advice given to you by your health care provider. Make sure you discuss any questions you have with your health care provider.Document Released: 05/07/2006 Document Revised: 05/28/2015 Document Reviewed: 01/12/2014Paulette Interactive Patient Education ?2016 [employer] Normal [facility] ED Patient Summaryon 017 ED Patient Summary [facility] - Emergency [id number] [place], [place] [id number] pATIENT DISCHARGE INSTRUCTIONSPatient InformationName: ALCIDES GOSS Age: 61 YearsDate of : [birth year]MRN: [id number] For Visit: Scalp laceration; FALL - HEAD LACERATIONArrival Time: 11/26/16 19:55:00Phone: primary Care Physician: Vielka CHATMAN Physician: Mukund Gaitan MDComment:Visit Diagnosis:Diagnoses This Visit Laceration of scalp (S01.01XA) Scalp laceration ([id number])If you received any narcotics, sedation, or any other medication that causes drowsiness for the next 24 hours, unless otherwise directed:? Do not drive a car.? Do not operate machinery such as power tools, lawn mowers, drills, sewing machines, or stoves? Avoid alcoholic beverages and drugs for allergies, nerves, or sleep? Do not make important personal or business decisions or sign any legal documentsWith: Address: When:Follow up with primary care provider Within 7 to 10 daysComments:Wash the skin area of the wound and around the wound once a day with soap and water. Pat it dry. Apply bacitracin antibiotic ointment to the wound 2 or 3 times a day.Keep area clean and dry.Followup with your doctor or PCP as instructed within 8-10 days for reevaluation.Return to ER if there is any worse problems such as increased swelling redness, significant pain, headache or weakness.Medication Information:The exam and treatment you received today in the [facility] Emergency Department were for an urgent problem and are not intended as complete care. It is important for you to follow up with a doctor, nurse practitioner, or physician?s museum assistant for ongoing care. If your symptoms become worse or you do not improve as expected and you are unable to reach your usual health care provider, you should return to the Emergency Department, we are available 24 hours a day.For those patients who have received Radiology results, the interpretation of your X-ray as given to you by our Emergency Department physician is only a preliminary report. The Radiologist will review your films and if there is a change in the diagnosis you will be notified by phone. Please make sure you have provided a working phone number so we can reach you if necessary.In the event that you had a lab culture while you were a patient in the Emergency Department, you will be notified by phone if there is a need to change your antibiotic. Please make sure you have provided a working phone number so we can reach you if necessary.[facility] Emergency Department has provided you with a complete list of medications post discharge. Please inform your assistant casino shift manager/provider of your visit and for further instruction on these medications. Any specific questions regarding your chronic medications and dosages should be discussed with your primary care physician(s) and/or pharmacist.Visit InformationAllergies:Substance Reaction Symptoms Type CommentsNo known allergies DrugVital Signs: Vitals and Measurements this Visit (last charted value for your 11/26/2016 visit) Vital Signs This Visit Temperature Oral: 36.2 DegC Peripheral Pulse Rate: 76 bpm Respiratory Rate: 16 br/min Systolic Blood Pressure: 136 mmHg Diastolic Blood Pressure: 75 mmHg SpO2: 99 % Measurements This Visit Height/Length Dosin.000 cm Height/Length Estimated: 168.000 cm Weight Dosin.000 kg Weight Estimated: 68.000 kgProblems List:Problem Onset CommentsHypercholesteremiaPatie nt EducationHead Injury, AdultYou have received a head injury. It does not appear serious at this time. Headaches and vomiting are common following head injury. It should be easy to awaken from sleeping. Sometimes it is necessary for you to stay in the emergency department for a while for observation. Sometimes admission to the hospital may be needed. After injuries such as yours, most problems occur within the first 24 hours, but side effects may occur up to 7?10 days after the injury. It is important for you to carefully monitor your condition and contact your health care provider or seek immediate medical care if there is a change in your condition. WHAT ARE THE TYPES OF HEAD INJURIES?Head injuries can be as minor as a bump. Some head injuries can be more severe. More severe head injuries include:? A jarring injury to the brain (concussion).? A bruise of the brain (contusion). This mean there is bleeding in the brain that can cause swelling.? A cracked skull (skull fracture).? Bleeding in the brain that collects, clots, and forms a bump (hematoma).WHAT CAUSES A HEAD INJURY?A serious head injury is most likely to happen to someone who is in a car wreck and is not wearing a seat belt. Other causes of major head injuries include bicycle or motorcycle accidents, sports injuries, and falls.HOW ARE HEAD INJURIES DIAGNOSED?A complete history of the event leading to the injury and your current symptoms will be helpful in diagnosing head injuries. Many times, pictures of the brain, such as CT or MRI are needed to see the extent of the injury. Often, an overnight hospital stay is necessary for observation.WHEN SHOULD I SEEK IMMEDIATE MEDICAL CARE?You should get help right away if:? You have confusion or drowsiness.? You feel sick to your stomach (nauseous) or have continued, forceful vomiting.? You have dizziness or unsteadiness that is getting worse.? You have severe, continued headaches not relieved by medicine. Only take lxjm-roo-suhslid or prescription medicines for pain, fever, or discomfort as directed by your health care provider.? You do not have normal function of the arms or legs or are unable to walk.? You notice changes in the black spots in the center of the colored part of your eye (pupil).? You have a clear or bloody fluid coming from your nose or ears.? You have a loss of vision.During the next 24 hours after the injury, you must stay with someone who can watch you for the warning signs. This person should contact local emergency services ([facility] in the [place] if you have seizures, you become unconscious, or you are unable to wake up.HOW CAN I PREVENT A HEAD INJURY IN THE FUTURE?The most important factor for preventing major head injuries is avoiding motor vehicle accidents. ?To minimize the potential for damage to your head, it is crucial to wear seat belts while riding in motor vehicles. Wearing helmets while bike riding and playing collision sports (like football) is also helpful. Also, avoiding dangerous activities around the house will further help reduce your risk of head injury.WHEN CAN I RETURN TO NORMAL ACTIVITIES AND ATHLETICS?You should be reevaluated by your health care provider before returning to these activities. If you have any of the following symptoms, you should not return to activities or contact sports until 1 week after the symptoms have stopped:? Persistent headache.? Dizziness or vertigo.? Poor attention and concentration.? Confusion.? Memory problems.? Nausea or vomiting.? Fatigue or tire easily.? Irritability.? Intolerant of bright lights or loud noises.? Anxiety or depression.? Disturbed sleep.MAKE SURE YOU:? Understand these instructions.? Will watch your condition.? Will get help right away if you are not doing well or get worse.This information is not intended to replace advice given to you by your health care provider. Make sure you discuss any questions you have with your health care provider.Document Released: 05/07/2006 Document Revised: 05/28/2015 Document Reviewed: 01/12/2014Paulette Interactive Patient Education ?2016 [employer]Laceration Care, AdultA laceration is a cut that goes through all layers of the skin. The cut also goes into the tissue that is right under the skin. Some cuts heal on their own. Others need to be closed with stitches (sutures), lenore, skin adhesive strips, or wound glue. Taking care of your cut lowers your risk of infection and helps your cut to heal better. HOW TO TAKE CARE OF YOUR CUTFor stitches or lenore:? Keep the wound clean and dry.? If you were given a bandage (dressing), you should change it at least one time per day or as told by your doctor. You should also change it if it gets wet or dirty.? Keep the wound completely dry for the first 24 hours or as told by your doctor. After that time, you may take a shower or a bath. However, make sure that the wound is not soaked in water until after the stitches or lenore have been removed.? Clean the wound one time each day or as told by your doctor:? Wash the wound with soap and water.? Rinse the wound with water until all of the soap comes off.? Pat the wound dry with a clean towel. Do not rub the wound.? After you clean the wound, put a thin layer of antibiotic ointment on it as told by your doctor. This ointment:? Helps to prevent infection.? Keeps the bandage from sticking to the wound.? Have your stitches or lenore removed as told by your doctor.If your doctor used skin adhesive strips:? Keep the wound clean and dry.? If you were given a bandage, you should change it at least one time per day or as told by your doctor. You should also change it if it gets dirty or wet.? Do not get the skin adhesive strips wet. You can take a shower or a bath, but be careful to keep the wound dry.? If the wound gets wet, pat it dry with a clean towel. Do not rub the wound.? Skin adhesive strips fall off on their own. You can trim the strips as the wound heals. Do not remove any strips that are still stuck to the wound. They will fall off after a while.If your doctor used wound glue:? Try to keep your wound dry, but you may briefly wet it in the shower or bath. Do not soak the wound in water, such as by swimming.? After you take a shower or a bath, gently pat the wound dry with a clean towel. Do not rub the wound.? Do not do any activities that will make you really sweaty until the skin glue has fallen off on its own.? Do not apply liquid, cream, or ointment medicine to your wound while the skin glue is still on.? If you were given a bandage, you should change it at least one time per day or as told by your doctor. You should also change it if it gets dirty or wet.? If a bandage is placed over the wound, do not let the tape for the bandage touch the skin glue.? Do not pick at the glue. The skin glue usually stays on for 5?10 days. Then, it falls off of the skin.General Instructions?? To help prevent scarring, make sure to cover your wound with sunscreen whenever you are outside after stitches are removed, after adhesive strips are removed, or when wound glue stays in place and the wound is healed. Make sure to wear a sunscreen of at least 30 SPF.? Take oumy-jck-argruza and prescription medicines only as told by your doctor.? If you were given antibiotic medicine or ointment, take or apply it as told by your doctor. Do not stop using the antibiotic even if your wound is getting better.? Do not scratch or pick at the wound.? Keep all follow-up visits as told by your doctor. This is important.? Check your wound every day for signs of infection. Watch for:? Redness, swelling, or pain.? Fluid, blood, or pus.? Raise (elevate) the injured area above the level of your heart while you are sitting or lying down, if possible.GET HELP IF:? You got a tetanus shot and you have any of these problems at the injection site:? Swelling.? Very bad pain.? Redness.? Bleeding.? You have a fever.? A wound that was closed breaks open.? You notice a bad smell coming from your wound or your bandage.? You notice something coming out of the wound, such as wood or glass.? Medicine does not help your pain.? You have more redness, swelling, or pain at the site of your wound.? You have fluid, blood, or pus coming from your wound.? You notice a change in the color of your skin near your wound.? You need to change the bandage often because fluid, blood, or pus is coming from the wound.? You start to have a new rash.? You start to have numbness around the wound.GET HELP RIGHT AWAY IF:? You have very bad swelling around the wound.? Your pain suddenly gets worse and is very bad.? You notice painful lumps near the wound or on skin that is anywhere on your body.? You have a red streak going away from your wound.? The wound is on your hand or foot and you cannot move a finger or toe like you usually can.? The wound is on your hand or foot and you notice that your fingers or toes look pale or bluish.This information is not intended to replace advice given to you by your health care provider. Make sure you discuss any questions you have with your health care provider.Document Released: 10/23/2008 Document Revised: 09/21/2015 Document Reviewed: 05/03/2015Paulette Interactive Patient Education ?2016 [place] [employer]. Viruses or BacteriaWhat?s got you sick?Antibiotics only treat bacterial infections. Viral illnesses cannot be treated with antibiotics. When an antibiotic is not prescribed, ask your healthcare professional for tips on how to relieve symptoms and feel better. Usual CauseIllnessVirusesBacteria Antibiotic NeededCold/Runny Nose NOBronchitis/Chest Cold (in otherwise healthy children and adults) NOWhooping Cough YesFlu NOStrep Throat YesSore Throat (except strep) NOFluid in the middle ear (otitis media with effusion) NOUrinary Tract Infection YesAntibiotics Aren?t Always the Answerwww.cdc.gov/getsmart GET SMART Know When Antibiotics [place] Department of Health and Human ServicesCenters for Disease Control and Prevention January 2014 Normal [facility] Vital Signs Date Time Vital Sign Value Performing Clinician Facility 06-18-2021 11:25-0500 Body height Sonali Le Other [employer] Other 06-18-2021 11:25-0500 Body mass index (BMI) [Ratio] 22.71 kg/m2 Sonali Le Other [employer] Other 06-18-2021 11:25-0500 Body temperature 97.3 [degF] Sonali Le Other [employer] Other 06-18-2021 11:25-0500 Body weight 65.77 kg Sonali Le Other [employer] Other 06-18-2021 11:25-0500 Diastolic blood pressure 57 mm[Hg] Sonali Mimi Other [employer] Other 06-18-2021 11:25-0500 Respiratory rate 18 /min Sonali Whittingtonault Other [employer] Other 06-18-2021 11:25-0500 SaO2% (BldA) [Mass fraction] 99 % Sonali Whittingtonault Other [employer] Other 06-18-2021 11:25-0500 Systolic blood pressure 116 mm[Hg] Sonali Whittingtonault Other [employer] Other Encounters Encounter Date Encounter Type Care Provider Facility Start: 07-31-2022 End: 07-31-2022 ambulatory CHRISTELLE BOO Facility:[facility] Start: 07-26-2022 End: 07-27-2022 ambulatory CHRISTELLE BOO Facility:[facility] Start: 02-02-2022 End: 02-03-[address] QUINTON ADAMS Facility:[facility] Start: 06-18-2021 End: 06-18-2021 ambulatory Sonali Le Other [employer] Other Start: 06-18-2021 Office outpatient ne w 20 minutes Sonali Le [facility] Start: 11-27-2016 End: 11-27-2016 Ambulatory Mukund Gaitan Facility:[facility] Start: 11-26-2016 End: 11-26-2016 Emergency department patient visit Mukund Gaitan Facility:[facility] Payers Date Payer Category Payer Unknown [id number] 1960 Medicare [id number] 1955 Unknown [id number] 1955 Unknown [id number] [id number] [id number] 1955 Unknown [id number] [id number] [id number] Private Health Insurance [id number] Social History Date Type Detail Facility Sex Assigned At [facility] [employer] Other Evaluation note Note Date & Type Note Facility Evaluation note Search to Phone [facility] [employer] Other History general Narrative - Reported Note Date & Type Note Facility History general Narrative - Reported [facility] [employer] Other Summary Purpose Family History No Family History Records FoundNo Family History Records FoundNo Family History Records FoundNo Family History Records Found Advance Directives No Advanced Directives Records FoundNo Advanced Directives Records FoundNo Advanced Directives Records FoundNo Advanced Directives Records Found Additional Source Comments INFORMATION SOURCE (unrecogn ized section and content) DATE CREATED AUTHOR 11/13/2017 [facility] DATE CREATED AUTHOR AUTHOR'S ORGANIZ ATION 01/02/2020 [facility] DATE CREATED AUTHOR AUTHOR'S ORGANIZ ATION 06/20/2021 [facility] DATE CREATED AUTHOR AUTHOR'S ORGANIZ ATION 08/02/2022 [facility] FOR RECORDS PERTAINING TO PATIENTS WHO ARE OR HAVE BEEN ENROLLED IN A CHEMICAL DEPENDENCY/SUBSTANCEABUSE PROGRAM, SOME INFORMATION MAY BE OMITTED. This clinical summary was aggregated from multiple sources. Caution should be exercised in using it in the provision of clinical care. This summary normalizes information from multiple sources, and as a consequence, information in this document may materially change the coding, format and clinical context of patient data. In addition, data may be omitted in some cases. CLINICAL DECISIONS SHOULD BE BASED ON THE PRIMARY CLINICAL RECORDS. [facility] [facility]. provides no warranty or guarantee of the accuracy or completeness of information in this document.
--- NOTE | 2023-11-13 08:14 | PC.NURSE ---
Nursing Note Cardiac Stress Test Reviewed: Medication, allergies and patient history reviewed. Stress Test: [x ] Patient tolerated stress test well. [ ] Patient unable to tolerate walking on treadmill. Switched to Lexiscan stress test. [x ] No chest pain noted per patient [ ] Chest pain that resolved prior to leaving stress lab. [ x] No dyspnea noted. [ ] Dyspnea that resolved prior to leaving stress lab. [x ] Patient left stress lab asymptomatic and hemodynamically stable. [ ] Patient taken to the Emergency Room due to non-resolving symptoms following stress test. [x ] Patient achieved target heart rate. [ ] Patient unable to achieve target heart rate. [ ] Aminophylline administered as reversal agent to Lexiscan (Regadenoson). [ ] Nitro administered. Nursing Comments: Pt had regular treadmill stress test done. Pt tolerated well.
--- NOTE | 2023-11-13 08:42 | PM.STRESS ---
Stress Test Stress Test Requesting physician: CHRISTELLE BOO Procedure: Exercise stress test General Information: Reason for Stress Test: Hyperlipidemia Cardiac History and Risk Factors: No personal history listed. An unspecified grandparent had TN. Resting 12 - Lead Electrocardiogram: Rate & rhythm: Normal sinus at a rate of 66. [place]: Normal T-waves: Inverted in aVL ST-segments: Normal orientation Stress Test: Protocol: Gary protocol was followed Exercise capacity: Excellent exercise capacity. Total exercise time of 9 minutes 24 seconds reached Gary stage 4 at 4.2MPH, 16% grade, & 11.3 METs. Blood pressure: Initial: 110/76, Maximum: 158/82 Rate & rhythm: Patient remained in sinus rhythm during the exercise and recovery portions of the study.? The maximum heart rate was 150, which was 99% of the maximum predicted heart rate. ST-segments & T-waves: There were no T-wave changes or ST-segment changes when compared to the baseline EKG. Patient response/symptoms: There were no symptoms similar to the chief complaint. Interpretation: Normal exercise stress test without electrocardiographical evidence of ischemia. Asymptomatic of chief complaint. [place] treadmill score is 9.4, which places patient in a liw risk category. Clinical correlation required.
== END 2023-11-13 07:15 | disposition home or self-care (01) ==
LOC: CARD 07:14
PROVIDERS: PCP Nurse Practitioner Family; Visit Provider Nurse Practitioner Family
DX: R07.9 Chest pain, unspecified (principal)
CPT/HCPCS: 93017

== ENCOUNTER 2024-03-04 10:28 | Outpatient (OUT) | payer MEDICARE, SELFPAY ==
--- NOTE | 2024-03-04 10:31 | MM_ITS ---
Patient Name: ALCIDES GOSS MR#: [id number] : 1955 Exam Date: 03/04/2024 Ordering Doctor: DR. DOT WARREN D.O. RADIOLOGY REPORT PROCEDURE: MM TOMOSYNTHESIS SCREENING BI COMPARISON: MG MAMM SCREEN 3D TERRENCE CAD, 02/02/2022. MM TOMOSYNTHESIS SCREENING BI, 02/17/2023. INDICATIONS: Screening Calculator Name NCI Breast Cancer Risk Assessment Tool 5 Year Breast Cancer Risk 3.60% Lifetime Breast Cancer Risk 10.40% Personal Breast Cancer No Personal Ovarian Cancer No Treatments Excision Family Cancers Daughter with breast cancer at age 41. LOCATION: [facility] BREAST COMPOSITION: The breasts are heterogeneously dense,which may obscure small masses. FINDINGS: DIAGNOSTIC CATEGORY 1--NEGATIVE. NO CHANGE FROM COMPARISON ASSESSMENT. Scattered benign-appearing calcifications are present. Scattered benign-appearing lymph nodes are present. RIGHT BREAST: No significant suspicious finding. LEFT BREAST: No significant suspicious finding. RECOMMENDATIONS: ROUTINE MAMMOGRAM AND CLINICAL EVALUATION IN 12 MONTHS. PLEASE NOTE: A NORMAL MAMMOGRAM DOES NOT EXCLUDE THE POSSIBILITY OF BREAST CANCER. A CLINICALLY SUSPICIOUS PALPABLE LUMP SHOULD BE BIOPSIED. Dictated by: Андрей Kennedy MD on 03/04/2024 at 13:42 Approved by: Андрей Kennedy MD on 03/04/2024 at 13:43
--- OUTSIDE RECORDS SUMMARY | 2024-03-04 10:43 | XMS_ITS | CCD ---
Author Organization [facility] Care Team Providers Care Cutter Hot Knife Name Role Phone Le, Mukund K Unavailable [...] Test Name Value Interpretation Reference Range Facility [facility] BLD IMMUNO SCREENon 07-19 OCCULT BLOOD Negative Normal NEGATIVE [facility] Comment on above: Performed By: #### LIPID, T7, TSH, CMP # ### [facility] [address] [address] [address] Maya Hartmann INSULINon 07-27-2022 Insulin 8.7 uIU/mL Normal 2.6-24.9 [facility] Comment on above: Performed By: #### INSULIN #### [facility] [address] [address] [address] Maya Hartmann CBC AUTO DIFFon 07-26-2022 BASO # 0.0 103/ul Normal 0.0-0.1 [facility] Comment on above: Performed By: #### CBC #### [facility] [address] [address] [address] Maya Hartmann Basophils/100 WBC (Bld) 0.7 % Normal 0.2-2.0 [facility] Comment on above: Performed By: #### CBC #### [facility] [address] [address] [address] Maya Hartmann EO # 0.1 103/ul Normal 0.0-0.7 [facility] Comment on above: Performed By: #### CBC #### [facility] [address] [place] [address] Dr. Maya Hartmann Eosinophils/100 WBC (Bld) 2.0 % Normal 0.9-7.0 [facility] Comment on above: Performed By: #### CBC #### [facility] [address] [place] [address] Dr. Maya Hartmann Erythrocyte distribution width (RBC) [Ratio] 11.9 % Normal 11.0-15.0 [facility] Comment on above: Performed By: #### CBC #### [facility] [address] [place] [address] Dr. Maya Hartmann Hematocrit (Bld) [Volume fraction] 39.3 % Normal 36.0-48.0 [facility] Comment on above: Performed By: #### CBC #### [facility] [address] [place] [address] Dr. Maya Hartmann Hemoglobin (Bld) [Mass/Vol] 13.5 g/dL Normal 12.0-16.0 [facility] Comment on above: Performed By: #### CBC #### [facility] [address] [place] [address] Dr. Maya Hartmann IG # 0.00 10e3/ul Normal 0.00-0.03 [facility] Comment on above: Performed By: #### CBC #### [facility] [address] [place] [address] Dr. Maya Hartmann IG % 0.0 % Normal 0.0-0.5 [facility] Comment on above: Performed By: #### CBC #### [facility] [address] [place] [address] Dr. Maya Hartmann LYMPH # 1.3 103/ul Normal 1.2-3.8 [facility] Comment on above: Performed By: #### CBC #### [facility] [address] [place] [address] Dr. Maya Hartmann Lymphocytes/100 WBC (Bld) 41.3 % Normal 20.5-60.0 [facility] Comment on above: Performed By: #### CBC #### [facility] [address] [place] [address] Dr. Maya Hartmann MANUAL DIFF REQ NO Normal [facility] Comment on above: Performed By: #### CBC #### [facility] [address] [place] [address] Dr. Maya Hartmann MCH (RBC) [Entitic mass] 29.9 pg Normal 26.7-34.0 [facility] Comment on above: Performed By: #### CBC #### [facility] [address] [place] [address] Dr. Maya Hartmann MCHC (RBC) [Mass/Vol] 34.4 g/dL Normal 29.9-35.2 [facility] Comment on above: Performed By: #### CBC #### [facility] [address] [place] [address] Dr. Maya Hartmann MCV (RBC) [Entitic vol] 86.9 fL Normal 81.0-99.0 [facility] Comment on above: Performed By: #### CBC #### [facility] [address] [place] [address] Dr. Maya Hartmann MONO # 0.2 103/ul Critically low 0.3-0.8 [facility] Comment on above: Performed By: #### CBC #### [facility] [address] [place] [address] Dr. Maya Hartmann Monocytes/100 WBC (Bld) 6.9 % Normal 1.7-12.0 [facility] Comment on above: Performed By: #### CBC #### [facility] [address] [place] [address] Dr. Maya Hartmann NEUT # 1.5 103/ul Normal 1.4-6.5 [facility] Comment on above: Performed By: #### CBC #### [facility] [address] [place] [address] Dr. Maya Hartmann Neutrophils/100 WBC (Bld) 49.1 % Normal 43.0-75.0 [facility] Comment on above: Performed By: #### CBC #### [facility] [address] [address] [address] Maya Hartmann Platelet mean volume (Bld) [Entitic vol] 8.6 fL Critically low 9.5-13.5 [facility] Comment on above: Performed By: #### CBC #### [facility] [address] [place] [address] Dr. Maya Hartmann PLT 212 103/ul Normal 150-450 [facility] Comment on above: Performed By: #### CBC #### [facility] [address] [place] [address] Dr. Maya Hartmann RBC 4.52 106/ul Normal 4.20-5.40 [facility] Comment on above: Performed By: #### CBC #### [facility] [address] [place] [address] Dr. Maya Hartmann WBC 3.1 103/ul Critically low 4.0-11.0 [facility] Comment on above: Performed By: #### CBC #### [facility] [address] [place] [address] Dr. Maya Hartmann FREE THYROXINE INDEX T7on FTI 2.17 Normal 1.30-4.50 [facility] Comment on above: Performed By: #### LIPID, T7, TSH, CMP # ### [facility] [address] [place] [address] Dr. Maya Hartmann T3U 35.0 % Normal 30.0-39.0 [facility] Comment on above: Performed By: #### LIPID, T7, TSH, CMP # ### [facility] [address] [address] [address] Maya Hartmann T4 [Mass/Vol] 6.20 ug/dL Normal 4.80-13.90 [facility] Comment on above: Performed By: #### LIPID, T7, TSH, CMP # ### [facility] [address] [place] [address] Dr. Maya Hartmann GLYCOHEMOGLOBIN A1Con 2022 ADA RECOMMENDATION SEE BELOW Normal [facility] Comment on above: Result Comment: ADA RECOMMENDED LIMIT 4. 0 - 6.0 ADA THERAPEUTIC TARGET < 7.0 ACTION SUGGESTED > 7.0 Performed By: #### A 1C #### [facility] [address] [place] [address] Dr. Maya Hartmann Glucose [Mass/Vol] 94 mg/dL Normal [facility] Comment on above: Performed By: #### A1C #### [facility] [address] [place] [address] Dr. Maya Hartmann HbA1c (Bld) [Mass fraction] 4.9 % Normal 4.5-6.2 [facility] Comment on above: Performed By: #### A1C #### [facility] [address] [place] [address] Dr. Maya Hartmann IRONon 07-26-2022 Iron [Mass/Vol] 81.0 ug/dL Normal 50.0-170.0 [facility] Comment on above: Performed By: #### IRON #### [facility] [address] [place] [address] Dr. Maya Hartmann LIPID PROFILEon 07-26-2022 CHOL-HDL RATIO NORM SEE BELOW Normal [facility] Comment on above: Result Comment: 3.3 - 4.4 LOW RISK 4.4 - 7.1 AVERAGE RISK 7.1 - 11.0 MODERATE RISK >11.0 HIGH RISK Performed By: #### L IPID, T7, TSH, CMP #### [facility] [address] [place] [address] Dr. Maya Hartmann Cholesterol [Mass/Vol] 254 mg/dL Critically high <=200 [facility] Comment on above: Performed By: #### LIPID, T7, TSH, CMP # ### [facility] [address] [place] [address] Dr. Maya Hartmann Cholesterol in HDL [Mass/Vol] 51 mg/dL Normal 40-60 [facility] Comment on above: Performed By: #### LIPID, T7, TSH, CMP # ### [facility] [address] [address] [address] Maya Hartmann Cholesterol in LDL [Mass/Vol] 170.4 mg/dL Normal [facility] Comment on above: Performed By: #### LIPID, T7, TSH, CMP # ### [facility] [address] [address] [address] Maya Hartmann Cholesterol.tota l/Cholesterol in HDL [Mass ratio] 5.0 {ratio} Normal [facility] Comment on above: Performed By: #### LIPID, T7, TSH, CMP # ### [facility] [address] [address] [address] Maya Hartmann HDL NORMAL > or = 60 mg/dl - LO W CARDIOVASCULAR RISK <40 mg/dl - HIGH CARDIOVASCULAR RISK Normal [facility] Comment on above: Performed By: #### LIPID, T7, TSH, CMP # ### [facility] [address] [address] [address] Maya Hartmann LDL CALC NORMAL SEE BELOW Normal [facility] Comment on above: Result Comment: <100 mg/dl OPTIMAL 100 - 129 mg/dl NEAR OR ABOVE OPTIMAL 130 - 159 mg/dl BORDERLINE HIGH 160 - 189 mg/dl HIGH >190 mg/dl VERY HIGH Performed By: #### L IPID, T7, TSH, CMP #### [facility] [address] [address] [address] Maya Hartmann Triglyceride [Mass/Vol] 163 mg/dL Critically high <=150 [facility] Comment on above: Performed By: #### LIPID, T7, TSH, CMP # ### [facility] [address] [address] [address] Maya Hartmann VLDL CALC 32.6 mg/dL Normal [facility] Comment on above: Performed By: #### LIPID, T7, TSH, CMP # ### [facility] [address] [address] [address] Maya Hartmann PROF 14(COMP METB)on 023 Albumin [Mass/Vol] 4.1 g/dL Normal 3.4-5.0 [facility] Comment on above: Performed By: #### LIPID, T7, TSH, CMP # ### [facility] [address] [place] [address] Dr. Maya Hartmann Albumin/Globulin [Mass ratio] 1.4 {ratio} Normal [facility] Comment on above: Performed By: #### LIPID, T7, TSH, CMP # ### [facility] [address] [place] [address] Dr. Maya Hartmann ALP [Catalytic activity/Vol] 82 U/L Normal 46-116 [facility] Comment on above: Performed By: #### LIPID, T7, TSH, CMP # ### [facility] [address] [place] [address] Dr. Maya Hartmann ALT [Catalytic activity/Vol] 28 U/L Normal 14-59 [facility] Comment on above: Performed By: #### LIPID, T7, TSH, CMP # ### [facility] [address] [place] [address] Dr. Maya Hartmann Anion gap [Moles/Vol] 8.3 mmol/L Normal [facility] Comment on above: Performed By: #### LIPID, T7, TSH, CMP # ### [facility] [address] [place] [address] Dr. Maya Hartmann AST [Catalytic activity/Vol] 24 U/L Normal 15-37 [facility] Comment on above: Performed By: #### LIPID, T7, TSH, CMP # ### [facility] [address] [place] [address] Dr. Maya Hartmann Bilirubin [Mass/Vol] 0.5 mg/dL Normal 0.2-1.0 [facility] Comment on above: Performed By: #### LIPID, T7, TSH, CMP # ### [facility] [address] [place] [address] Dr. Maya Hartmann Calcium [Mass/Vol] 9.4 mg/dL Normal 8.5-10.1 [facility] Comment on above: Performed By: #### LIPID, T7, TSH, CMP # ### [facility] [address] [place] [address] Dr. Maya Hartmann Chloride [Moles/Vol] 104 mmol/L Normal 98-107 [facility] Comment on above: Performed By: #### LIPID, T7, TSH, CMP # ### [facility] [address] [address] [address] Maya Hartmann CO2 [Moles/Vol] 30.8 mmol/L Normal 21.0-32.0 [facility] Comment on above: Performed By: #### LIPID, T7, TSH, CMP # ### [facility] [address] [address] [address] Maya Hartmann Creatinine [Mass/Vol] 0.86 mg/dL Normal 0.55-1.02 [facility] Comment on above: Performed By: #### LIPID, T7, TSH, CMP # ### [facility] [address] [address] [address] Maya Hartmann EGFR-AF [place] >60 Normal >=60 [facility] Comment on above: Performed By: #### LIPID, T7, TSH, CMP # ### [facility] [address] [address] [address] Maya Hartmann EGFR-NON AF [place] >60 Normal >=60 [facility] Comment on above: Performed By: #### LIPID, T7, TSH, CMP # ### [facility] [address] [address] [address] Maya Hartmann Globulin (S) [Mass/Vol] 2.9 g/dL Normal [facility] Comment on above: Performed By: #### LIPID, T7, TSH, CMP # ### [facility] [address] [address] [address] Maya Hartmann Glucose [Mass/Vol] 93 mg/dL Normal 74-106 [facility] Comment on above: Performed By: #### LIPID, T7, TSH, CMP # ### [facility] [address] [address] [address] Maya Hartmann Potassium [Moles/Vol] 4.1 mmol/L Normal 3.5-5.1 [facility] Comment on above: Performed By: #### LIPID, T7, TSH, CMP # ### [facility] [address] [address] [address] Maya Hartmann Protein [Mass/Vol] 7.0 g/dL Normal 6.4-8.2 [facility] Comment on above: Performed By: #### LIPID, T7, TSH, CMP # ### [facility] [address] [address] [address] Maya Hartmann Sodium [Moles/Vol] 139 mmol/L Normal 136-145 [facility] Comment on above: Performed By: #### LIPID, T7, TSH, CMP # ### [facility] [address] [address] [address] Maya Hartmann Urea nitrogen [Mass/Vol] 11.0 mg/dL Normal 7.0-18.0 [facility] Comment on above: Performed By: #### LIPID, T7, TSH, CMP # ### [facility] [address] [address] [address] Maya Hartmann Urea nitrogen/Creatin ine [Mass ratio] 12.8 mg/mg Normal [facility] Comment on above: Performed By: #### LIPID, T7, TSH, CMP # ### [facility] [address] [address] [address] Maya Hartmann TSHon 07-26-2022 TSH 5.728 uIU/mL Critically high 0.358-3.74 0 [facility] Comment on above: Performed By: #### LIPID, T7, TSH, CMP # ### [facility] [address] [address] [address] Maya Hartmann MG MAMM SCREEN 3D TERRENCE CADon 02-02-2022 MG MAMM SCREEN 3D TERRENCE CAD Patient: ALCIDES GOSS Exam Date: 02/02/2022 : 1955 Gender:F Ordering : DR. DOT WARREN D.O. Admission #: [id number] Family : Order #: [id number] CLICK HERE TO VIEW EXAM RADIOLOGY REPORT PROCEDURE: MAMMOGRAM SCREENING 3D BILATERAL CAD COMPARISON: MG MAMM SCREEN TERRENCE W CAD, 01/29/2020. MG MAMM SCREEN 3D TERRENCE CAD, 01/31/2021. INDICATIONS: Screening mammography Calculator Name NCI Breast Cancer Risk Assessment Tool 5 Year Breast Cancer Risk 3.50% Lifetime Breast Cancer Risk 11.80% Personal Breast Cancer No Personal Ovarian Cancer No Treatments Excision Family Cancers Daughter with breast cancer at age 41. LOCATION: [facility] BREAST COMPOSITION: Heterogeneously dense,which may obscure small [...] Adams MD on 02/02/2022 at 15:21 Normal [facility] XR DEXA BONE DENSITYon 02-02 XR DEXA [...] by: ROMEL PIKE Date: 2022-02-02 14:13 Normal [facility] Urinalysis - AUTOMATEDon Appearance (U) clear [employer] Other Bilirubin Ql (U) Negative [employer] Other Color (U) orange [facility] Other Glucose Ql (U) 100 [facility] [employer] [facility] Other Hemoglobin Ql (U) [employer] Other Ketones Ql (U) Negative [employer] Other Leukocyte esterase Test strip Ql (U) [employer] Other Nitrite Ql (U) Positive [employer] Other pH (U) 6.5 [pH] [employer] Other Protein Ql (U) 30 [employer] Other Specific gravity (U) [Rel density] 1.020 [employer] Other Urobilinogen (U) [Mass/Vol] 1.0 mg/dL [employer] Other Urine Cultureon 06-18-2021 Bacteria identified Cx Nom (U) Reason for Exam Dysuria Urine 30,000 colonies/ml mixed bacterial skin contaminants 2 Days PERFORMED BY: [place] [address] PATHOLOGIST ACADEMIC ASSOCIATE TJ ALEJANDRA M.D. [facility] Comment on above: Performed By: #### CUU #### [address] CULTURE, URINE, ROUTINEon CULTURE, URINE, ROUTINE SEE NOTE Normal [facility] Comment on above: Result Comment: CULTURE, URINE, ROUTINE Micro Number: [id number] Test Status: Final Specimen Source: 395 Specimen Quality: Adequate Result: Mixed non-uropathogenic Gram positive leesa. May represent colonizers from external and internal genitalia. No further testing (including susceptibility) will be performed. Performed By: #### 3 95 #### [facility]-[address], [address] [place] [phone] Control Systems Drafting Officer: Gabriel Tsai MD Coding Summaryon 03-20-2017 Coding Summary CODING DATE: 017 [facility] STATUS: Home PAYOR: Commercial Insurance APC [...] Locke Revised Date Saved: 12/06/2016 03:06 pm [facility] Coding Summary CODING DATE: 017 [facility] STATUS: Home PAYOR: Commercial Insurance APC [...] Locke Revised Date Saved: 12/06/2016 03:04 pm [facility] Coding Summaryon 12-06-2016 Coding Summary CODING DATE: 017 [facility] STATUS: Home PAYOR: Commercial Insurance ADMIT [...] Locke Revised Date Saved: 12/06/2016 03:06 pm [facility] Coding Summary CODING DATE: 017 [facility] STATUS: Home PAYOR: Commercial Insurance ADMIT [...] Lydia Locke Date Saved: 12/06/2016 03:04 pm [facility] ED Note - Otheron 11-30-2016 Thyroid stimulating hormone (TSH) 1st call back attempt- pt states that she is doing wonderful, she has a follow up appointment on 12/05/16, and she does not have any questions regarding her discharge instructions[Electronically Signed on: 11/30/2016 11:18 EDT] Chris Mitchell[Verified on: 11/30/2016 11:18 EDT] Chris Mitchell [facility] ED Clinical Summaryon 2016 ED Clinical Summary [facility] [address] [place] [address] ed Clinical SummaryPERSON INFORMATIONName: ALCIDES GOSS Age: 61 Years Sex: FEMALEDOB: [birth year] MRN: Acct#:Visit Reason: Scalp laceration; FALL - HEAD LACERATION Arrival:11/26/16 19:55:00 Discharge: 11/26/16 21:33:00LOS: 000 01:38 Check In: 11/26/16 19:55:00 Checkout:11/26/16 21:33:00Address:[address] [facility] [address]EOR: ANSHUL CHATMANPROVICARIN INFORMATIONProvider Role Assigned UnassignedTANO BUCK ED PA 11/26/16 20:16:58 11/26/16 20:31:06Jessica [...] INFORMATIONInstructions: Head Injury, Adult; Laceration Care, Adult, Yheq-ku-DslyUvuadt-Up:With: Address: When:Follow up with primary care provider [...] significant pain, headache or weakness.DIAGNOSIS:Laceration of scalpComment: [facility] ED Note - Physicianon 2016 ED Note [...] 30 minutes.[Electronically Signed on: 11/26/2016 21:05 EDT] Muuknd Gaitan MD[Verified on: 11/26/2016 21:05 EDT] Mukund Gaitan MD [facility] ED Note - Physician Patient: ALCIDES GOSS : 61 years Sex: FEMALE : [birth year]Associated Diagnoses: Laceration of scalpAuthor: Mukund Gaitan MDBasic InformationTime seen: Date & time 11/26/16 20:20:00.History source: Patient.Arrival mode: Private vehicle, walking.History limitation: None.Additional information: Chief Complaint from Nursing Triage Note : Chief Sjhqpxgsr33/09/17 20:00 EDT Chief Complaint FELL HITTING HEAD [...] Diastolic Blood Pressure 75 mmHg SpO2 99 %.Pnzglsuhmceh79/09/17 20:22 EDT Height/Length Dosing 168.000 cm Weight [...] wound closure.They understoodImpression and PlanDiagnosisLaceration of scalp ([id number]-BA S01.01XA, Discharge, Medical)PlanCondition: Improved, Stable.Disposition: Discharged: Time 11/26/16 21:05:00, to home.Patient was given the following educational materials: Laceration Care, Adult, Hmpk-oa-Rjcz, Head Injury, Adult, Head Injury, Adult, Laceration Care, Adult, Quoy-jj-Janh.Follow up with: Follow up with primary care [...] on: 11/26/2016 22:40 EDT] Mukund Gaitan MD [facility] Comment on above: Order Comment: Missing Attachment [id number] Can be viewed in source system ED Note-Nursingon 11-26-2016 ED Note-Nursing WOUND REPAIRED BY DR Donald GAITAN. 6 LENORE AND 2 SUTURES NOTED. DC ORDERS RECEIV AND DISCUSSED WITH PT. SHE VERBALIZED UNDERSTANDING. PT HOME WITH STEADY GAIT NOTED UPON EXITING ED. [facility] ED Patient Education Noteon 11-26-2016 ED Patient Education Note Education AtlzcvwsfBbdx-ke-JvdlVtlgswcjcr Care, AdultA laceration is a cut that [...] sunscreen of at least 30 SPF.? Take ueav-gch-qmmjjbw and prescription medicines only as told by [...] Document Reviewed: 05/03/2015[employer] Patient Education ?2016 [employer].Home Health CareHead Injury, AdultYou have received a [...] headaches not relieved by medicine. Only take cliq-nrk-jfqcfbp or prescription medicines for pain, fever, or [...] Document Reviewed: 01/12/2014[employer] Patient Education ?2016 [employer] Normal [facility] ED Patient Summaryon 017 ED Patient Summary [facility] Emergency [address] [place], [place] [id number] pATIENT DISCHARGE INSTRUCTIONSPatient InformationName: ALCIDES GOSS Age: 61 YearsDate of : [birth year]MRN: [id number] For Visit: Scalp laceration; FALL - HEAD LACERATIONArrival Time: 11/26/16 19:55:00Phone: primary Care Physician: Vielka CHATMAN Physician: Mukund Gaitan MDComment:Visit Diagnosis:Diagnoses This Visit Laceration of scalp (S01.01XA) Scalp laceration ([id number])If you received any narcotics, sedation, or [...] and treatment you received today in the [facility] Emergency Department were for an urgent problem and are not intended as complete care. It is important for you to follow up with a doctor, nurse practitioner, or physician?s construction assistant for ongoing care. If your symptoms [...] number so we can reach you if necessary.[facility] Emergency Department has provided you with a complete list of medications post discharge. Please inform your monomer purification operator/provider of your visit and for further instruction [...] headaches not relieved by medicine. Only take gusd-xpy-eeqwlog or prescription medicines for pain, fever, or [...] This person should contact local emergency services ([facility] in the [place] if you have seizures, [...] Document Reviewed: 01/12/2014[employer] Patient Education ?2016 [employer]Laceration Care, AdultA laceration is a cut [...] sunscreen of at least 30 SPF.? Take rmyc-jyu-bwpxueb and prescription medicines only as told by [...] Document Reviewed: 05/03/2015[employer] Patient Education ?2016 [employer]. Viruses or BacteriaWhat?s got you sick?Antibiotics only [...] Disease Control and Prevention January 2014 Normal [facility] Vital Signs Date Time Vital Sign Value Performing Clinician Facility 06-18-2021 11:25-0500 Body height Sonali Le Other [facility] Other 06-18-2021 11:25-0500 Body mass index (BMI) [Ratio] 22.71 kg/m2 Sonali Le Other [facility] Other 06-18-2021 11:25-0500 Body temperature 97.3 [degF] Sonali Le Other [facility] Other 06-18-2021 11:25-0500 Body weight 65.77 kg Sonali Le Other [facility] Other 06-18-2021 11:25-0500 Diastolic blood pressure 57 mm[Hg] Sonali Mimi Other [facility] Other 06-18-2021 11:25-0500 Respiratory rate 18 /min Sonali Whittingtonault Other [facility] Other 06-18-2021 11:25-0500 SaO2% (BldA) [Mass fraction] 99 % Sonali Whittingtonault Other [facility] Other 06-18-2021 11:25-0500 Systolic blood pressure 116 mm[Hg] Sonali Whittingtonault Other [facility] Other Encounters Encounter Date Encounter Type Care Provider Facility Start: 07-31-2022 End: 07-31-2022 ambulatory CHRISTELLE BOO Facility:[facility] Start: 07-26-2022 End: 07-27-2022 ambulatory CHRISTELLE BOO Facility:[facility] Start: 02-02-2022 End: 02-03-[address] QUINTON ADAMS Facility:[facility] Start: 06-18-2021 End: 06-18-2021 ambulatory Sonali Le Other [email or web address] Other Start: 06-18-2021 Office outpatient ne w 20 minutes Sonali Le [facility] Start: 11-27-2016 End: 11-27-2016 Ambulatory Mukund Gaitan Facility:[facility] Start: 11-26-2016 End: 11-26-2016 Emergency department patient visit Mukund Gaitan Facility:[facility] Payers Date Payer Category Payer Unknown [id number] 1960 Medicare [id number] 1955 Unknown [id number] 1955 Unknown [id number] 1955 Unknown [id number] Private Health Insurance [id number] Social History Date Type Detail Facility Sex Assigned At [facility] Other Evaluation note Note Date & Type Note Facility Evaluation note [employer] [facility] EMR Other History general Narrative - Reported Note Date & Type Note Facility History general Narrative - Reported [facility] Other Summary Purpose Family History No Family History Records FoundNo Family History Records FoundNo Family History Records FoundNo Family History Records Found Advance Directives No Advanced Directives Records FoundNo Advanced Directives Records FoundNo Advanced Directives Records FoundNo Advanced Directives Records Found Additional Source Comments INFORMATION SOURCE (unrecogn ized section and content) DATE CREATED AUTHOR 11/13/2017 [facility] DATE CREATED AUTHOR AUTHOR'S ORGANIZ ATION 01/02/2020 [facility] DATE CREATED AUTHOR AUTHOR'S ORGANIZ ATION 06/20/2021 [facility] DATE CREATED AUTHOR AUTHOR'S ORGANIZ ATION 08/02/2022 [facility] FOR RECORDS PERTAINING TO PATIENTS WHO [...] THE PRIMARY CLINICAL RECORDS. [facility]. provides no warranty or guarantee of the accuracy or completeness of information in this document.
== END 2024-03-04 10:29 | disposition home or self-care (01) ==
LOC: MAMMO 10:28
PROVIDERS: PCP Nurse Practitioner Family; Visit Provider Obstetrics & Gynecology
DX: Z12.31 Encounter for screening mammogram for malignant neoplasm of breast (principal); Z80.3 Family history of malignant neoplasm of breast
CPT/HCPCS: 77063; 77067

== ENCOUNTER 2024-09-16 07:50 | Outpatient (OUT) | payer MEDICARE, SELFPAY ==
[2024-09-16 08:30] LABS: Basophils Percent Auto 0.4 % (0.2-2.0); Eosinophils Absolute Auto 0.1 10^3/uL (0.0-0.7); Eosinophils Percent Auto 1.9 % (0.9-7.0); Hematocrit 36.5 % (36.0-48.0); Hemoglobin 12.6 g/dL (12.0-16.0); Lymphocytes Absolute Auto 1.1 10^3/uL (1.2-3.8); Lymphocytes Percent Auto 42.2 % (20.5-60.0); Mean Corpuscular HGB Conc 34.5 g/dL (29.9-35.2); Mean Corpuscular Hemoglobin 30.4 pg (26.7-34.0); Mean Corpuscular Volume 88.2 fL (81.0-99.0); Mean Platelet Volume 8.7 fL (9.5-13.5); Monocytes Absolute Auto 0.2 10^3/uL (0.3-0.8); Neutrophils Absolute Auto 1.3 10^3/uL (1.4-6.5); Neutrophils Percent Auto 47.5 % (43.0-75.0); Platelet Count 189 10^3/uL (150-450); Red Blood Count 4.14 10^6/uL (4.20-5.40); Red Cell Distribution Width 11.9 % (11.0-15.0); White Blood Count 2.6 10^3/uL (4.0-11.0)
[2024-09-16 09:03] LABS: Estimated Average Glucose 105 mg/dL; Glycohemoglobin A1C 5.3 % (4.5-6.2)
[2024-09-16 09:05] LABS: Alanine Aminotransferase 30 U/L (14-59); Anion Gap 9.4; Aspartate Amino Transferase 24 U/L (15-37); BUN Creatinine Ratio 16.7; Bilirubin Total 0.6 mg/dL (0.2-1.0); Calcium 9.2 mg/dL (8.5-10.1); Carbon Dioxide 30.5 mmol/L (21.0-32.0); Chloride 104 mmol/L (98-107); Estimated GFR (African America >60 (>=60 mL/min/1.73m^2); Estimated GFR (Non-African Ame >60 (>=60 mL/min/1.73m^2); Glucose 85 mg/dL (74-106); Potassium 3.9 mmol/L (3.5-5.1); Sodium 140 mmol/L (136-145)
[2024-09-16 09:06] LABS: Albumin Globulin Ratio 1.4; Albumin Level 3.8 g/dL (3.4-5.0); Alkaline Phosphatase 72 U/L (46-116); Globulin 2.8 g/dL; Total Protein 6.6 g/dL (6.4-8.2); Triglycerides 111 mg/dL (<=150); VLDL CHOLESTEROL 22.2 mg/dL
[2024-09-16 09:07] LABS: Chol HDL Ratio 4.1; Cholesterol 244 mg/dL (<=200); Free T3 3.44 pg/mL (2.18-3.98); HDL Cholesterol 60 mg/dL (40-60); Thyroid Stimulating Hormone 3.869 uIU/mL (0.358-3.740)
== END 2024-09-16 07:51 | disposition home or self-care (01) ==
LOC: LAB 07:54
PROVIDERS: PCP Nurse Practitioner Family; Visit Provider Nurse Practitioner Family
DX: E78.5 Hyperlipidemia, unspecified (principal); R73.09 Other abnormal glucose; D64.9 Anemia, unspecified; E03.9 Hypothyroidism, unspecified; E55.9 Vitamin D deficiency, unspecified
CPT/HCPCS: 36415; 80053; 80061; 82306; 83036; 83525; 83540; 84436; 84443; 84481; 85025

== ENCOUNTER 2024-11-04 08:05 | Outpatient (RCR) | payer MEDICARE, SELFPAY ==
[2024-11-04 13:30] LABS: Basophils Percent Auto 0.5 % (0.2-2.0); Eosinophils Percent Auto 1.1 % (0.9-7.0); Hematocrit 39.1 % (36.0-48.0); Hemoglobin 13.5 g/dL (12.0-16.0); Immature Granulocytes Abs Auto 0.01 10^3/uL (0.00-0.03); Immature Granulocytes Pct Auto 0.3 % (0.0-0.5); Lymphocytes Absolute Auto 1.2 10^3/uL (1.2-3.8); Lymphocytes Percent Auto 32.4 % (20.5-60.0); Mean Corpuscular HGB Conc 34.5 g/dL (29.9-35.2); Mean Corpuscular Hemoglobin 30.4 pg (26.7-34.0); Mean Corpuscular Volume 88.1 fL (81.0-99.0); Mean Platelet Volume 8.9 fL (9.5-13.5); Monocytes Absolute Auto 0.2 10^3/uL (0.3-0.8); Monocytes Percent Auto 5.9 % (1.7-12.0); Neutrophils Absolute Auto 2.2 10^3/uL (1.4-6.5); Neutrophils Percent Auto 59.8 % (43.0-75.0); Platelet Count 214 10^3/uL (150-450); Red Blood Count 4.44 10^6/uL (4.20-5.40); Red Cell Distribution Width 11.9 % (11.0-15.0); White Blood Count 3.7 10^3/uL (4.0-11.0)
[2024-11-04 13:35] LABS: Erythrocyte Sedimentation Rate 6 mm/hr (<=30)
[2024-11-04 13:41] LABS: Lactate Dehydrogenase 187 U/L (81-234)
[2024-11-04 13:54] LABS: C Reactive Protein <0.50 mg/dL (<=0.50)
[2024-11-05 14:08] LABS: ANA Direct Negative (Negative)
[2024-11-05 21:16] LABS: Anti-MPO Antibodies <0.2 units (0.0-0.9); Anti-PR3 Antibodies <0.2 units (0.0-0.9); Cytoplasmic (C-ANCA) <1:20 titer (Neg:<1:20); Perinuclear (P-ANCA) <1:20 titer (Neg:<1:20)
== END 2024-11-05 09:14 | disposition home or self-care (01) ==
LOC: HEMC 08:05
PROVIDERS: PCP Nurse Practitioner Family; Visit Provider Internal Medicine Hematology & Oncology
DX: D72.819 Decreased white blood cell count, unspecified (principal); Z85.828 Personal history of other malignant neoplasm of skin
CPT/HCPCS: 36415; 83516; 83615; 85025; 85652; 86037; 86038; 86140; G0463

== ENCOUNTER 2024-12-09 07:59 | Outpatient (RCR) | payer MEDICARE, SELFPAY | END 2024-12-18 23:59 | disposition home or self-care (01) | LOC: HEMC 07:59 | PROVIDERS: PCP Nurse Practitioner Family; Visit Provider Internal Medicine Hematology & Oncology | DX: D72.819 Decreased white blood cell count, unspecified (principal) | CPT/HCPCS: G0463 ==

== ENCOUNTER 2025-03-09 11:23 | Outpatient (OUT) | payer MEDICARE, SELFPAY ==
--- NOTE | 2025-03-09 11:25 | MM_ITS ---
Patient Name: ALCIDES GOSS MR#: [id number] : 1955 Exam Date: 03/09/2025 Ordering Doctor: CHRISTELLE BOO CNP RADIOLOGY REPORT PROCEDURE: MM TOMOSYNTHESIS SCREENING BI COMPARISON: MM TOMOSYNTHESIS SCREENING BI, 03/04/2024. MM TOMOSYNTHESIS SCREENING BI, 02/17/2023. MG MAMM SCREEN 3D TERRENCE CAD, 02/02/2022. MG MAMM TERRENCE SCRN W CAD DIG, 07/01/2013. INDICATIONS: Screening Calculator Name NCI Breast Cancer Risk Assessment Tool 5 Year Breast Cancer Risk 3.70% Lifetime Breast Cancer Risk 9.90% Personal Breast Cancer No Personal Ovarian Cancer No Treatments Excision Family Cancers Daughter with breast cancer at age 41. LOCATION: [facility] [place] BREAST COMPOSITION: The breasts are heterogeneously dense, which may obscure small masses. FINDINGS: RIGHT BREAST: No significant suspicious finding. Benign-appearing calcifications are present. Benign-appearing lymph nodes in noted along the chest wall. LEFT BREAST: No significant suspicious finding. Benign-appearing calcifications are present. Benign-appearing lymph nodes are noted along the chest wall. DIAGNOSTIC CATEGORY 2--BENIGN FINDING. NO CHANGE FROM COMPARISON. RECOMMENDATIONS: ROUTINE MAMMOGRAM AND CLINICAL EVALUATION IN 12 MONTHS. Dictated by: Peter García MD on 03/09/2025 at 14:12 Approved by: Peter García MD on 03/09/2025 at 14:15
--- OUTSIDE RECORDS SUMMARY | 2025-03-09 11:26 | XMS_ITS | CCD ---
Author Organization [facility] Care Team Providers Care Commercial Real Estate Attorney Name Role Phone Le, Mukund K Unavailable Unavailable Le, Mukund K Unavailable Unavailable FURLOLIZ ANSHUL G Unavailable Unavailable Le, Mukund K Unavailable Unavailable Le, Mukund K Unavailable Unavailable FURCATHRYN, ANSHUL Unavailable Unavailable Sonali Le Unavailable CHRISTELLE BOO Attending Unavailable CHRISTELLE BOO Admitting Unavailable CHRISTELLE BOO Primary Care Unavailable CHRISTELLE BOO Consulting Unavailable CHRISTELLE BOO Consulting Unavailable CHRISTELLE BOO Attending Unavailable CHRISTELLE BOO Admitting Unavailable EMA CHRISTELLE Primary Care Unavailable DR QUINTON ADAMS V Consulting Unavailable KATHERIN LEZAMA Attending Unavailable KATHERIN LEZAMA Admitting Unavailable CHRISTELLE BOO Primary Care Unavailable DR ROMEL PIKE Consulting Unavailable KATHERIN LEZAMA Consulting Unavailable Rita KIM, Kenrick Stewart Primary Care Provider [phone] KATHERIN LEZAMA Attending Unavailable Medications Current Medications Medication Drug Class(es) [...] Active Problems Problem Classification Problem Date Documented Date Episodic/Chronic Deficiency and other anemia (1 source) [...] conditions (not mental disorders or infectious disease) (16 sources) Encounter for screening for malignant neoplasm of rectum; Translations: [Encounter for screening mammogram for malignant neoplasm of breast] Onset: 02-02-2022 Episodic Residual codes; unclassified (2 sources) Postmenopausal state; Translations: [Asymptomatic menopausal state] 07-02-2024 Episodic Past or Other Problems Problem Classification [...] Test Name Value Interpretation Reference Range Facility OCC BLD IMMUNO SCREENon 07-19 OCCULT BLOOD Negative Normal NEGATIVE [facility] Comment on above: Performed By: #### LIPID, T7, TSH, CMP # ### [facility] [address] [address] [address] Maya Hartmann INSULINon 07-27-2022 Insulin 8.7 uIU/mL Normal 2.6-24.9 [facility] Comment on above: Performed By: #### INSULIN #### [facility] [address] [address] [address] Maya Hartmann CBC AUTO DIFFon 07-26-2022 BASO # 0.0 103/ul Normal 0.0-0.1 [facility] Comment on above: Performed By: #### CBC #### [facility] [address] [address] [address] Maya Hartmann Basophils/100 WBC (Bld) 0.7 % Normal 0.2-2.0 [facility] Comment on above: Performed By: #### CBC #### [facility] [address] [place] [address] Dr. Maya Hartmann EO # 0.1 103/ul Normal 0.0-0.7 [facility] Comment on above: Performed By: #### CBC #### [facility] [address] [place] [address] Dr. Maya Hartmann Eosinophils/100 WBC (Bld) 2.0 % Normal 0.9-7.0 [facility] Comment on above: Performed By: #### CBC #### [facility] [address] [place] [address] Dr. Maya Hartmann Erythrocyte distribution width (RBC) [Ratio] 11.9 % Normal 11.0-15.0 [facility] Comment on above: Performed By: #### CBC #### [facility] [address] [place] [address] Dr. Maya Hartmann Hematocrit (Bld) [Volume fraction] 39.3 % Normal 36.0-48.0 [facility] Comment on above: Performed By: #### CBC #### [facility] [address] [place] [address] Dr. Maya Hartmann Hemoglobin (Bld) [Mass/Vol] 13.5 g/dL Normal 12.0-16.0 [facility] Comment on above: Performed By: #### CBC #### [facility] [address] [place] [address] Dr. Maya Hartmann IG # 0.00 10e3/ul Normal 0.00-0.03 [facility] Comment on above: Performed By: #### CBC #### [facility] [address] [address] [address] Maya Hartmann IG % 0.0 % Normal 0.0-0.5 [facility] Comment on above: Performed By: #### CBC #### [facility] [address] [place] [address] Dr. Maya Hartmann LYMPH # 1.3 103/ul Normal 1.2-3.8 [facility] Comment on above: Performed By: #### CBC #### [facility] [address] [place] [address] Dr. Maya Hartmann Lymphocytes/100 WBC (Bld) 41.3 % Normal 20.5-60.0 [facility] Comment on above: Performed By: #### CBC #### [facility] [address] [place] [address] Dr. Maya Hartmann MANUAL DIFF REQ NO Normal [facility] Comment on above: Performed By: #### CBC #### [facility] [address] [place] [address] Dr. Maya Hartmann MCH (RBC) [Entitic mass] 29.9 pg Normal 26.7-34.0 [facility] Comment on above: Performed By: #### CBC #### [facility] [address] [place] [address] Dr. Maya Hartmann MCHC (RBC) [Mass/Vol] 34.4 g/dL Normal 29.9-35.2 [facility] Comment on above: Performed By: #### CBC #### [facility] [address] [place] [address] Dr. Maya Hartmann MCV (RBC) [Entitic vol] 86.9 fL Normal 81.0-99.0 [facility] Comment on above: Performed By: #### CBC #### [facility] [address] [place] [address] Dr. Maya Hartmann MONO # 0.2 103/ul Critically low 0.3-0.8 [facility] Comment on above: Performed By: #### CBC #### [facility] [address] [place] [address] Dr. Maya Hartmann Monocytes/100 WBC (Bld) 6.9 % Normal 1.7-12.0 [facility] Comment on above: Performed By: #### CBC #### [facility] [address] [place] [address] Dr. Maya Hartmann NEUT # 1.5 103/ul Normal 1.4-6.5 [facility] Comment on above: Performed By: #### CBC #### [facility] [address] [place] [address] Dr. Maya Hartmann Neutrophils/100 WBC (Bld) 49.1 % Normal 43.0-75.0 [facility] Comment on above: Performed By: #### CBC #### [facility] [address] [place] [address] Dr. Maya Hartmann Platelet mean volume (Bld) [Entitic vol] 8.6 fL Critically low 9.5-13.5 [facility] Comment on above: Performed By: #### CBC #### [facility] [address] [place] [address] Dr. Maya Hartmann PLT 212 103/ul Normal 150-450 [facility] Comment on above: Performed By: #### CBC #### [facility] [address] [place] [address] Dr. Maya Hartmann RBC 4.52 106/ul Normal 4.20-5.40 [facility] Comment on above: Performed By: #### CBC #### [facility] [address] [place] [address] Dr. Maya Hartmann WBC 3.1 103/ul Critically low 4.0-11.0 [facility] Comment on above: Performed By: #### CBC #### [facility] [address] [place] [address] Dr. Maya Hartmann FREE THYROXINE INDEX T7on FTI 2.17 Normal 1.30-4.50 [facility] Comment on above: Performed By: #### LIPID, T7, TSH, CMP # ### [facility] [address] [place] [address] Dr. Maya Hartmann T3U 35.0 % Normal 30.0-39.0 [facility] Comment on above: Performed By: #### LIPID, T7, TSH, CMP # ### [facility] [address] [place] [address] Dr. Maya Hartmann T4 [Mass/Vol] 6.20 ug/dL Normal 4.80-13.90 [facility] Comment on above: Performed By: #### LIPID, T7, TSH, CMP # ### [facility] [address] [place] [address] Dr. Maya Hartmann GLYCOHEMOGLOBIN A1Con 2022 ADA RECOMMENDATION SEE BELOW Normal [facility] Comment on above: Result Comment: ADA RECOMMENDED LIMIT 4. 0 - 6.0 ADA THERAPEUTIC TARGET < 7.0 ACTION SUGGESTED > 7.0 Performed By: #### A 1C #### [facility] [address] [place] [address] Dr. Maya Hartmann Glucose [Mass/Vol] 94 mg/dL Normal [facility] Comment on above: Performed By: #### A1C #### [facility] [address] [place] [address] Dr. Maya Hartmann HbA1c (Bld) [Mass fraction] 4.9 % Normal 4.5-6.2 [facility] Comment on above: Performed By: #### A1C #### [facility] [address] [place] [address] Dr. Maya Hartmann IRONon 07-26-2022 Iron [Mass/Vol] 81.0 ug/dL Normal 50.0-170.0 [facility] Comment on above: Performed By: #### IRON #### [facility] [address] [place] [address] Dr. Maya Hartmann LIPID PROFILEon 07-26-2022 CHOL-HDL RATIO NORM SEE BELOW Normal [facility] Comment on above: Result Comment: 3.3 - 4.4 LOW RISK 4.4 - 7.1 AVERAGE RISK 7.1 - 11.0 MODERATE RISK >11.0 HIGH RISK Performed By: #### L IPID, T7, TSH, CMP #### [facility] [address] [place] [address] Dr. Maya Hartmann Cholesterol [Mass/Vol] 254 mg/dL Critically high <=200 [facility] Comment on above: Performed By: #### LIPID, T7, TSH, CMP # ### [facility] [address] [address] [address] Maya Hartmann Cholesterol in HDL [Mass/Vol] 51 mg/dL Normal 40-60 [facility] Comment on above: Performed By: #### LIPID, T7, TSH, CMP # ### [facility] [address] [address] [address] Maya Hartmann Cholesterol in LDL [Mass/Vol] 170.4 mg/dL Normal [facility] Comment on above: Performed By: #### LIPID, T7, TSH, CMP # ### [facility] [address] [address] [address] Maya Hartmann Cholesterol.tota l/Cholesterol in HDL [Mass ratio] 5.0 {ratio} Normal [facility] Comment on above: Performed By: #### LIPID, T7, TSH, CMP # ### [facility] [address] [address] [address] Maya Hartmann HDL NORMAL > or = 60 mg/dl - LO W CARDIOVASCULAR RISK <40 mg/dl - HIGH CARDIOVASCULAR RISK Normal [facility] Comment on above: Performed By: #### LIPID, T7, TSH, CMP # ### [facility] [address] [address] [address] Maya Hartmann LDL CALC NORMAL SEE BELOW Normal [facility] Comment on above: Result Comment: <100 mg/dl OPTIMAL 100 - 129 mg/dl NEAR OR ABOVE OPTIMAL 130 - 159 mg/dl BORDERLINE HIGH 160 - 189 mg/dl HIGH >190 mg/dl VERY HIGH Performed By: #### L IPID, T7, TSH, CMP #### [facility] [address] [address] [address] Maay Hartmann Triglyceride [Mass/Vol] 163 mg/dL Critically high <=150 [facility] Comment on above: Performed By: #### LIPID, T7, TSH, CMP # ### [facility] [address] [address] [address] Maya Hartmann VLDL CALC 32.6 mg/dL Normal [facility] Comment on above: Performed By: #### LIPID, T7, TSH, CMP # ### [facility] [address] [address] [address] Maya Hartmann PROF 14(COMP METB)on 023 Albumin [Mass/Vol] 4.1 g/dL Normal 3.4-5.0 [facility] Comment on above: Performed By: #### LIPID, T7, TSH, CMP # ### [facility] [address] [address] [address] Maya Hartmann Albumin/Globulin [Mass ratio] 1.4 {ratio} Normal [facility] Comment on above: Performed By: #### LIPID, T7, TSH, CMP # ### [facility] [address] [place] [address] Dr. Maya Hartmann ALP [Catalytic activity/Vol] 82 U/L Normal 46-116 [facility] Comment on above: Performed By: #### LIPID, T7, TSH, CMP # ### [facility] [address] [place] [address] Dr. Maya Hartmann ALT [Catalytic activity/Vol] 28 U/L Normal 14-59 [facility] Comment on above: Performed By: #### LIPID, T7, TSH, CMP # ### [facility] [address] [place] [address] Dr. Maya Hartmann Anion gap [Moles/Vol] 8.3 mmol/L Normal [facility] Comment on above: Performed By: #### LIPID, T7, TSH, CMP # ### [facility] [address] [address] [address] Maya Hartmann AST [Catalytic activity/Vol] 24 U/L Normal 15-37 [facility] Comment on above: Performed By: #### LIPID, T7, TSH, CMP # ### [facility] [address] [place] [address] Dr. Maya Hartmann Bilirubin [Mass/Vol] 0.5 mg/dL Normal 0.2-1.0 [facility] Comment on above: Performed By: #### LIPID, T7, TSH, CMP # ### [facility] [address] [place] [address] Dr. Maya Hartmann Calcium [Mass/Vol] 9.4 mg/dL Normal 8.5-10.1 [facility] Comment on above: Performed By: #### LIPID, T7, TSH, CMP # ### [facility] [address] [address] [address] Maya Hartmann Chloride [Moles/Vol] 104 mmol/L Normal 98-107 [facility] Comment on above: Performed By: #### LIPID, T7, TSH, CMP # ### [facility] [address] [address] [address] Maya Hartmann CO2 [Moles/Vol] 30.8 mmol/L Normal 21.0-32.0 [facility] Comment on above: Performed By: #### LIPID, T7, TSH, CMP # ### [facility] [address] [address] [address] Maya Hartmann Creatinine [Mass/Vol] 0.86 mg/dL Normal 0.55-1.02 [facility] Comment on above: Performed By: #### LIPID, T7, TSH, CMP # ### [facility] [address] [address] [address] Maya Hartmann EGFR-AF NIGERIAN >60 Normal >=60 [facility] Comment on above: Performed By: #### LIPID, T7, TSH, CMP # ### [facility] [address] [address] [address] Maya Hartmann EGFR-NON AF NIGERIAN >60 Normal >=60 [facility] Comment on above: Performed By: #### LIPID, T7, TSH, CMP # ### [facility] [address] [address] [address] Maya Hartmann Globulin (S) [Mass/Vol] 2.9 g/dL Normal [facility] Comment on above: Performed By: #### LIPID, T7, TSH, CMP # ### [facility] [address] [address] [address] Maya Hartmann Glucose [Mass/Vol] 93 mg/dL Normal 74-106 [facility] Comment on above: Performed By: #### LIPID, T7, TSH, CMP # ### [facility] [address] [address] [address] Maya Hartmann Potassium [Moles/Vol] 4.1 mmol/L Normal 3.5-5.1 [facility] Comment on above: Performed By: #### LIPID, T7, TSH, CMP # ### [facility] [address] [address] [address] Maya Hartmann Protein [Mass/Vol] 7.0 g/dL Normal 6.4-8.2 [facility] Comment on above: Performed By: #### LIPID, T7, TSH, CMP # ### [facility] [address] [address] [address] Maya Hartmann Sodium [Moles/Vol] 139 mmol/L Normal 136-145 [facility] Comment on above: Performed By: #### LIPID, T7, TSH, CMP # ### [facility] [address] [place] [address] Dr. Maya Hartmann Urea nitrogen [Mass/Vol] 11.0 mg/dL Normal 7.0-18.0 [facility] Comment on above: Performed By: #### LIPID, T7, TSH, CMP # ### [facility] [address] [address] [address] Maya Hartmann Urea nitrogen/Creatin ine [Mass ratio] 12.8 mg/mg Normal [facility] Comment on above: Performed By: #### LIPID, T7, TSH, CMP # ### [facility] [address] [place] [address] Dr. Maya Hartmann TSHon 07-26-2022 TSH 5.728 uIU/mL Critically high 0.358-3.74 0 [facility] Comment on above: Performed By: #### LIPID, T7, TSH, CMP # ### [facility] [address] [place] [address] Dr. Maya Hartmann MG MAMM SCREEN 3D TERRENCE CADon 02-02-2022 MG MAMM SCREEN 3D TERRENCE CAD Patient: SOFY GOSS Exam Date: 02/02/2022 : 1955 Gender:F Ordering : DR. KATHERIN LEZAMA D.O. Admission #: [id number] Family : Order #: [id number] CLICK HERE TO VIEW EXAM RADIOLOGY REPORT [...] breast cancer at age 40. LOCATION: [facility] BREAST COMPOSITION: Heterogeneously dense,which may obscure small [...] Adams MD on 02/02/2022 at 15:21 Normal [facility] XR DEXA BONE DENSITYon 02-02 XR [...] by: ROMEL PIKE Date: 2022-02-02 14:13 Normal [facility] Urinalysis - AUTOMATEDon Appearance (U) clear [employer] Other Bilirubin Ql (U) Negative [employer] Other Color (U) orange [employer] Other Glucose Ql (U) 100 [employer] Other Hemoglobin Ql (U) large [employer] Other Ketones Ql (U) Negative [employer] Other Leukocyte esterase Test strip Ql (U) large [employer] Other Nitrite Ql (U) Positive [employer] Other pH (U) 6.5 [pH] [employer] Other Protein Ql (U) 30 [employer] Other Specific gravity (U) [Rel density] 1.020 [employer] Other Urobilinogen (U) [Mass/Vol] 1.0 mg/dL [employer] Other Urine Cultureon 06-18-2021 Bacteria identified Cx Nom (U) Reason for Exam Dysuria Urine 30,000 colonies/ml mixed bacterial skin contaminants 2 Days PERFORMED BY: [place] [address] PATHOLOGIST DIGITAL PHOTOGRAPHER TJ ALEJANDRA M.D. [facility] Comment on above: Performed By: #### CUU #### [address] CULTURE, URINE, ROUTINEon CULTURE, URINE, ROUTINE SEE NOTE Normal [facility] Comment on above: Result Comment: CULTURE, URINE, ROUTINE Micro Number: [id number] Test Status: Final Specimen Source: 395 Specimen Quality: Adequate Result: Mixed non-uropathogenic Gram positive leesa. May represent colonizers from external and internal genitalia. No further testing (including susceptibility) will be performed. Performed By: #### 3 95 #### [facility]-[address], [address] [place] [id number] Straw Hat Brim Cutter Operator: Gabriel Tsai MD Coding Summaryon 03-20-2017 Coding Summary CODING DATE: 017 [facility] STATUS: Home PAYOR: Commercial Insurance APC [...] Locke Revised Date Saved: 12/06/2016 03:06 pm [facility] Coding Summary CODING DATE: 017 [facility] STATUS: Home PAYOR: Commercial Insurance APC [...] Locke Revised Date Saved: 12/06/2016 03:04 pm [facility] Coding Summaryon 12-06-2016 Coding Summary CODING DATE: 017 [facility] STATUS: Home PAYOR: Commercial Insurance ADMIT [...] Locke Revised Date Saved: 12/06/2016 03:06 pm [facility] Coding Summary CODING DATE: 017 [facility] STATUS: Home PAYOR: Commercial Insurance ADMIT [...] Lydia Locke Date Saved: 12/06/2016 03:04 pm [facility] ED Note - Otheron 11-30-2016 Thyroid stimulating hormone (TSH) 1st call back attempt- pt states that she is doing wonderful, she has a follow up appointment on 12/05/16, and she does not have any questions regarding her discharge instructions[Electronically Signed on: 11/30/2016 11:18 EDT] Chris Mitchell[Verified on: 11/30/2016 11:18 EDT] Chris Mitchell [facility] ED Clinical Summaryon 2016 ED Clinical Summary [facility] - Emergency [id number] [place] [address] ed Clinical SummaryPERSON INFORMATIONName: SOFY GOSS Age: 61 Years Sex: FEMALEDOB: [birth year] MRN: Acct#:Visit Reason: Scalp laceration; FALL - HEAD LACERATION Arrival:11/26/16 19:55:00 Discharge: 11/26/16 21:33:00LOS: 000 01:38 Check In: 11/26/16 19:55:00 Checkout:11/26/16 21:33:00Address:[address] [place] [id number]: RICHA CHATMAN INFORMATIONProvider Role Assigned UnassignedTANO BUCK ED PA 11/26/16 20:16:59 11/26/16 20:31:06Jessica Larson RN ED Nurse 11/26/16 20:17:49Mukund Pereira MD ED Provider 11/26/16 20:20:21VITALS INFORMATIONVital Sign Triage LatestTemperature TympanicTemperature Temporal ArteryPulse Rate 76 bpm 76 bpmO2 Sat 99 % 99 %Respiratory Rate 16 br/min 16 br/minBlood Pressure 136 mmHg/75 mmHg 136 mmHg/75 mmHgMEDICAL INFORMATIONMedications Given:Medication Dose RouteTdap 0.5 mL IMbacitracin topical 500 unit(s) TOPAllergy Information:No known allergiesPHYSICIAN DOCUMENTATIONPatient: SOFY GOSS : 61 years Sex: FEMALE : [birth year]Associated Diagnoses: NoneAuthor: Mukund Pereira MDProcedureLaceration repairTime: 11/26/16 20:40:00 .Confirmed: Patient, procedure, [...] INFORMATIONInstructions: Head Injury, Adult; Laceration Care, Adult, Hykr-am-VmyvUcdopn-Up:With: Address: When:Follow up with primary care provider [...] significant pain, headache or weakness.DIAGNOSIS:Laceration of scalpComment: [facility] - Physicianon 2016 ED Note - Physician Patient: SOFY GOSS : 61 years Sex: FEMALE : [birth year]Associated Diagnoses: NoneAuthor: Mukund Pereira MDProcedureLaceration repairTime: 11/26/16 20:40:00 .Confirmed: Patient, procedure, [...] minutes.[Electronically Signed on: 11/26/2016 21:05 EDT] Mukund Pereira MD[Verified on: 11/26/2016 21:05 EDT] Mukund Pereira MD [facility] ED Note - Physician Patient: SOFY GOSS : 61 years Sex: FEMALE : [birth year]Associated Diagnoses: Laceration of scalpAuthor: Mukund Pereira MDBasic InformationTime seen: Date & time 11/26/16 20:20:00.History source: Patient.Arrival mode: Private vehicle, walking.History limitation: None.Additional information: Chief Complaint from Nursing Triage Note : Chief Nhsuxofmn05/09/17 20:00 EDT Chief Complaint FELL HITTING HEAD [...] Diastolic Blood Pressure 75 mmHg SpO2 99 %.Mxcmcswwpaal77/09/17 20:22 EDT Height/Length Dosing 168.000 cm Weight Dosing 68.000 kg11/26/16 20:00 EDT Height/Length Estimated 168.000 cm Weight Estimated 68.000 kg.General: Alert, no acute distress.[place] coma scale: Total score: Total score: 15.Neurological: [...] wound closure.They understoodImpression and PlanDiagnosisLaceration of scalp ([id number] S01.01XA, Discharge, Medical)PlanCondition: Improved, Stable.Disposition: Discharged: Time 11/26/16 21:05:00, to home.Patient was given the following educational materials: Laceration Care, Adult, Zwgs-ot-Ggai, Head Injury, Adult, Head Injury, Adult, Laceration Care, Adult, Qmrn-fa-Peun.Follow up with: Follow up with primary care [...] instructions.[Electronically Signed on: 11/26/2016 22:40 EDT] Mukund Pereira MD[Verified on: 11/26/2016 22:40 EDT] Mukund Pereira MD [facility] Comment on above: Order Comment: Missing Attachment [id number] Can be viewed in source system ED Note-Nursingon 11-26-2016 ED Note-Nursing WOUND REPAIRED BY DR Donald PEREIRA. 6 LENORE AND 2 SUTURES NOTED. DC ORDERS RECEIV AND DISCUSSED WITH PT. SHE VERBALIZED UNDERSTANDING. PT HOME WITH STEADY GAIT NOTED UPON EXITING ED. [facility] ED Patient Education Noteon 11-26-2016 ED Patient Education Note Education UgadrdqiiFydh-nq-TuwuWsuobanioh Care, AdultA laceration is a cut that [...] sunscreen of at least 30 SPF.? Take xjds-xlg-hfgniba and prescription medicines only as told by [...] Document Reviewed: 05/03/2015Paulette Interactive Patient Education ?2016 [employer].Home Health CareHead Injury, AdultYou have received a [...] headaches not relieved by medicine. Only take fudy-xry-nrtbbgc or prescription medicines for pain, fever, or [...] This person should contact local emergency services (911 in the [place] if you have seizures, [...] Document Reviewed: 01/12/2014Paulette Interactive Patient Education ?2016 [employer] Normal [facility] ED Patient Summaryon 017 ED Patient Summary [facility] - Emergency [address] [place] [id number] pATIENT DISCHARGE INSTRUCTIONSPatient InformationName: SOFY GOSS Age: 61 YearsDate of : 53MRN: [id number] For Visit: Scalp laceration; FALL - HEAD LACERATIONArrival Time: 11/26/16 19:55:00Phone: [facility] Physician: ANSHUL CHATMANAttlissa Physician: Mukund Pereira MDComment:Visit Diagnosis:Diagnoses This Visit Laceration of scalp (S01.01XA) Scalp laceration ([id number])If you received any narcotics, sedation, or [...] and treatment you received today in the [facility] Emergency Department were for an urgent problem and are not intended as complete care. It is important for you to follow up with a doctor, nurse practitioner, or physician?s assistant professor of life sciences for ongoing care. If your symptoms become [...] number so we can reach you if necessary.[facility] Emergency Department has provided you with a complete list of medications post discharge. Please inform your primary care sales representative/provider of your visit and for further instruction [...] headaches not relieved by medicine. Only take mdfl-lsh-zssdegr or prescription medicines for pain, fever, or [...] Document Reviewed: 01/12/2014Paulette Interactive Patient Education ?2016 [employer].Laceration Care, AdultA laceration is a cut that [...] sunscreen of at least 30 SPF.? Take lfrh-vkw-votusrz and prescription medicines only as told by [...] Document Reviewed: 05/03/2015Paulette Interactive Patient Education ?2016 [employer]. Viruses or BacteriaWhat?s got you sick?Antibiotics only [...] Disease Control and Prevention January 2014 Normal [facility] Vital Signs Date Time Vital Sign Value Performing Clinician Facility 07-02-2024 11:42-0500 Body mass index (BMI) [Ratio] 22.92 kg/m2 Katherin Rinkes DO Work Phone: [facility] [employer] 07-02-2024 11:42-0500 Body weight 64.41 kg Katherin Rinkes DO Work Phone: [facility] [employer] 07-02-2024 11:42-0500 Diastolic blood pressure 70 mm[Hg] Katherin Rinkes DO Work Phone: [facility] 07-02-2024 11:42-0500 Systolic blood pressure 124 mm[Hg] Katherin Rinkes DO Work Phone: [facility] [employer] 06-18-2021 11:25-0500 Body height Sonali Le Other [facility] Other 06-18-2021 11:25-0500 Body mass index (BMI) [Ratio] 22.71 kg/m2 Sonali Le Other [facility] Other 06-18-2021 11:25-0500 Body temperature 97.3 [degF] Sonali Le Other [facility] Other 06-18-2021 11:25-0500 Body weight 65.77 kg Sonali Le Other [facility] Other 06-18-2021 11:25-0500 Diastolic blood pressure 57 mm[Hg] Sonali Le Other [facility] Other 06-18-2021 11:25-0500 Respiratory rate 18 /min Sonali Le Other [facility] Other 06-18-2021 11:25-0500 SaO2% (BldA) [Mass fraction] 99 % Snoali Le Other [facility] Other 06-18-2021 11:25-0500 Systolic blood pressure 116 mm[Hg] Sonali Le Other [facility] Other Encounters Encounter Date Encounter Type Care Provider Facility Start: 07-02-2024 End: 07-02-2024 Bamboo flowsheet Katherin Velazquezkes DO Work Phone: [facility] Start: 07-02-2024 End: 07-02-2024 Bamboo flowsheet Katherin E Rinkes DO Work Phone: [facility] Start: 07-02-2024 End: 07-02-2024 ambulatory KATHERIN LEZAMA Not Available Start: 07-02-2024 End: 07-02-2024 Patient encounter status Katherin Lezama DO Work Phone: [facility] Start: 07-02-2024 End: 07-02-2024 Periodic preventive med est patient 65yrs& older Katherin Velazquezkes DO Work Phone: [facility] Comment on above: Encounter for gyneco logical examination without abnormal finding; Screening for malignant neoplasm of cervix; Encounter for screening mammogram for breast cancer; Screening for osteoporosis; Postmenopausal status, age-related Start: 07-31-2022 End: 07-31-2022 ambulatory CHRISTELLE BOO Facility:[facility] Start: 07-26-2022 End: 07-27-2022 ambulatory CHRISTELLE BOO Facility:[facility] Start: 02-02-2022 End: 02-03-[address] QUINTON ADAMS Facility:[facility] Start: 06-18-2021 End: 06-18-2021 ambulatory Sonali Le Other [facility] Other Start: 06-18-2021 Office outpatient ne w 20 minutes Sonali Le [facility] Start: 11-27-2016 End: 11-27-2016 Ambulatory Mukund Pereira Facility:[facility] Start: 11-26-2016 End: 11-26-2016 Emergency department patient visit Mukund Pereira Facility:[facility] Plan of Treatment Date Care Activity Detail Author Start: 07-06-2026 End: 07-06-2026 Patient encounter procedure 07/06/2026 10:30 AM EST Office Visit [facility] [address] [place] [address] Katherin Lezama, DO [address] [place] [address] [facility] DBT Breast - bilateral screening Bilateral screening mammogram with tomosynthesis Imaging Routine Encounter for screening mammogram for breast cancer Ordered: 07/02/2024 [facility] Comment on above: Ordered: 07/02/2024 DXA Skeletal system Views for bone density DEXA bone density Imaging Routine Screening for osteoporosis Postmenopausal status, age-related Ordered: 07/02/2024 [facility] Comment on above: Ordered: 07/02/2024 IGP, RFX APTIMA HPV ASCU IGP, RFX APTIMA HPV ASCU Lab Routine Screening for malignant neoplasm of cervix Ordered: 07/02/2024 [facility] Work Phone: Comment on above: Ordered: 07/02/2024 Payers Date Payer Category Payer Medicaid [employer] MED[employer]ARE A DVANTAGE [id number] 2016 Unknown [id number] 1960 Medicare [id number] 1955 Unknown [id number] 1954 Unknown [id number] 1954 Unknown [id number] 1954 Unknown [id number] Private Health Insurance RIB [id number] Social History Date Type Detail Facility Sex Assigned At [facility] Other Tobacco smoking stat [facility] Tobacco smoking consumption unknown [facility] Start: 1955 Sex assigned at Not on file [facility] Start: 08-02-2022 Gender identity Identifies as female gender (finding) [facility] Sexual orientation Not on file [facility] History of Present illness Narrative 07-02-2024 Katherin Lezama DO - 07/02/2024 11:30 AM EST Note Date & Type Note Facility 07-02-2024 History of Presen t illness Narrative Images from the original note were not included. Katherin Lezama, Hillary. Obstetrics and Gynecology Patient: Sofy Goss : 1955 (69 y.o.) Yearly Wellness Exam Date: 07/02/2024 Reason for Visit - Chief Complaint Patient presents with Gynecologic Exam Denies concerns, Denies bowel/bladder/breast concerns. Denies vaginal bleeding/spotting. Visit Vitals BP 124/70 Wt 142 lb BMI 22.92 kg/m BSA 1.73 m No Known Allergies History of Present Illness, Associated Treatments and Results - OB History Para Term AB Living 3 3 3 0 0 0 SAB IAB Ectopic Multiple Live Births 0 0 0 0 0 # Outcome Date GA Lbr Raymundo/2nd Weight Sex Type Anes PTL Lv 3 Term 2 Term 1 Term Obstetric Comments Pap smear 01/17/22 wnl Mammogram 02/17/23 wnl @ [facility] DEXA 02/02/22 Review of Systems - General: Chills denies. Allergy/Immunology: Rash Denies. ENT: Denies Difficulty swallowing. Endocrine: Denies Cold intolerance denies. Heat intolerance denied. Respiratory: Denies Chest pain denies. Shortness of breath denies. Breast: Denies Bloody nipple discharge denies. Breast lump denies. Cardiovascular: Denies Chest pain. Gastrointestinal: Abdominal pain denies. Blood in stool denies. Hematology: Easy bruising denies. Prolonged bleeding denies. Women Only: Breast lump denies. Vaginal bleeding between periods is denied. Vaginal discharge/itching denied. Genitourinary: Blood in urine denies. Painful urination denies. Incontinence denies. Skin: Hair changes. Neurologic: Seizures denied. Stroke denies. Psychiatric: Anxiety denies. Depressed mood denies. Medication Documentation Review Audit Reviewed by Gaby Montoya MA (Power Generation Technician) on 07/02/24 at 1140 Medication Order Taking? Sig Documenting Provider Last Dose Status No Medications to Display Past Medical History: Diagnosis Date Vaginal delivery Past Surgical History: Procedure Laterality Date COLONOSCOPY OTHER SURGICAL HISTORY TVT-[id number] No family history on file. Physical Exam - General appearance, mentation, extraocular movements, facial strength and movement, hearing, upper and lower extremity strength and tone, sensation to gross testing, coordination, and gait are normal or at baseline unless noted below. General Examination: GENERAL APPEARANCE: alert oriented well developed, well nourished. HEAD: normocephalic atraumatic. EYES: sclera anicteric. EARS: no obvious hearing deficit. SKIN: warm and dry. HEART: regular rate and rhythm. LUNGS: clear to auscultation bilaterally. CHEST: axillary nodes grossly normal. BREASTS: no masses palpable bilaterally, normal nipples bilaterally. ABDOMEN: soft, nontender, nondistended, no masses palpable. BACK: no costovertebral angle tenderness, no obvious scoliosis/kyphosis. FEMALE GENITOURINARY: atrophic vaginal mucosa, cervix absent of lesions, nontender, uterus AV, mobile, ovaries nonpalpable and nontender. EXTREMITIES: no edema. NEUROLOGIC: alert and oriented. PSYCH: cooperative with exam. Diagnoses and all orders for this visit: Encounter for gynecological examination without abnormal finding Screening for malignant neoplasm of cervix - IGP, RFX APTIMA HPV ASCU Encounter for screening mammogram for breast cancer - Bilateral screening mammogram with tomosynthesis Screening for osteoporosis - DEXA bone density Postmenopausal status, age-related - DEXA bone density Pap, pelvic and breast exam completed. Findings of today's exam discussed with the patient. Continue MSBE. Ca/Vit D recommendations reviewed with the patient. The patient is to contact the office with any changes to her gynecological condition. The patient is to return in 1 year or as needed ICD-10-CM 1. Encounter for gynecological examination without abnormal finding Z01.419 2. Screening for malignant neoplasm of cervix Z12.4 IGP, RFX APTIMA HPV ASCU 3. Encounter for screening mammogram for breast cancer Z12.31 Bilateral screening mammogram with tomosynthesis 4. Screening for osteoporosis Z13.820 DEXA bone density 5. Postmenopausal status, age-related Z78.0 DEXA bone density documented in this encounter [facility] Evaluation note Note Date & Type Note Facility Evaluation note [employer] Other Evaluation note Note Date & Type Note Facility Evaluation note Diagnosis Encounter for gynecological examination without abnormal finding Screening for malignant neoplasm of cervix Screening for malignant neoplasm of the cervix Encounter for screening mammogram for breast cancer Screening for osteoporosis Special screening for osteoporosis Postmenopausal status, age-related documented in this encounter [facility] History general Narrative - Reported Note Date & Type Note Facility History general Narrative - Reported [facility] Other Summary Purpose Family History No Family History Records FoundNo Family History Records FoundNo Family History Records FoundNo Family History Records FoundNo Family History Records Found Advance Directives No Advanced Directives Records FoundNo Advanced Directives Records FoundNo Advanced Directives Records FoundNo Advanced Directives Records FoundNo Advanced Directives Records Found Additional Source Comments INFORMATION SOURCE (unrecogn ized section and content) DATE CREATED AUTHOR 11/13/2017 [facility] DATE CREATED AUTHOR AUTHOR'S ORGANIZ ATION 01/02/2020 [facility] DATE CREATED AUTHOR AUTHOR'S ORGANIZ ATION 06/20/2021 [facility] DATE CREATED AUTHOR AUTHOR'S ORGANIZ ATION 08/02/2022 [facility] DATE CREATED AUTHOR AUTHOR'S ORGANIZ ATION 07/04/2024 [facility] [employer] Care Teams (unrecognized sec tion and content) Commercial Real Estate Attorney Relationship Specialty Start Date End Date Kenrick Salinas MD [address] [place] [address] PCP - General Family Medicine 07/02/24 Commercial Real Estate Attorney Relationship Specialty Start Date End Date Kenrick Salinas MD [address] [place] [phone] PCP - General Family Medicine 07/02/24 Reason for Visit (unrecogniz ed section and content) Reason Comments Gynecologic Exam Denies concerns, Den ies bowel/bladder/breast concerns. Denies vaginal bleeding/spotting. FOR RECORDS PERTAINING TO PATIENTS WHO ARE [...] BE BASED ON THE PRIMARY CLINICAL RECORDS. [facility] [employer] [facility]. provides no warranty or guarantee of the accuracy or completeness of information in this document.
== END 2025-03-09 11:24 | disposition home or self-care (01) ==
LOC: MAMMO 11:23
PROVIDERS: PCP Nurse Practitioner Family; Visit Provider Nurse Practitioner Family
DX: Z12.31 Encounter for screening mammogram for malignant neoplasm of breast (principal); Z80.3 Family history of malignant neoplasm of breast
CPT/HCPCS: 77063; 77067